=== PATIENT | male | born 2000 | race Caucasian/White ===

== ENCOUNTER → 2020-06-21 14:39 | Outpatient (BNVA) | payer OTHER, SELFPAY | PROVIDERS: Visit Provider Nurse Practitioner Family | DX: Z20.828 Contact with and (suspected) exposure to other viral communicable diseases (principal); J06.9 Acute upper respiratory infection, unspecified | CPT/HCPCS: 87635 ==

== ENCOUNTER → 2020-06-25 16:01 | Outpatient (BNVA) | payer OTHER, SELFPAY | PROVIDERS: Visit Provider Nurse Practitioner Family | DX: Z20.828 Contact with and (suspected) exposure to other viral communicable diseases (principal) | CPT/HCPCS: 87635 ==

== ENCOUNTER 2021-03-12 07:20 | Emergency (ER) | payer BC, SELFPAY ==
--- NOTE | 2021-03-12 07:24 | CTR_ITS ---
PROCEDURE INFORMATION: Exam: CT Head Without Contrast Exam date and time: 03/12/2021 7:24 AM Age: 20 years old Clinical indication: Weakness, extremity; Left; Additional info: Stroke symptoms - possible stroke w/ left sided weakness, head weakness, and unable to verbally communicate TECHNIQUE: Imaging protocol: Computed tomography of the head without contrast. Radiation optimization: All CT scans at this facility use at least one of these dose optimization techniques: automated exposure control; mA and/or kV adjustment per patient size (includes targeted exams where dose is matched to clinical indication); or iterative reconstruction. Other technique: STROKE PROTOCOL was implemented. COMPARISON: CT head wo con* [id number] 01/20/2019 9:33 PM RADIATION DOSE METRICS: Total DLP (mGy-cm): 990.41 FINDINGS: Brain: Normal. No hemorrhage. Unremarkable white matter. No mass effect. Cerebral ventricles: No ventriculomegaly. Paranasal sinuses: Visualized sinuses are unremarkable. No fluid levels. Mastoid air cells: Visualized mastoid air cells are well aerated. Bones/joints: Unremarkable. No acute fracture. Soft tissues: Unremarkable. CT/CT head wo con* [id number] IMPRESSION: No acute intracranial abnormality. ASSESSMENT: ASPECTS ([place] Stroke Program Early CT Score) is 10. Radiation Dose CTDIVOL = (mGy): DLP = 990.41 (mGy-cm)
[2021-03-12 07:28] VITALS: BP 127/71; PULSE 53; RESP 22; TEMP 36.7; O2SAT 100; BMI 22.6
--- NOTE | 2021-03-12 07:36 | XR_ITS ---
WS: [id number] Exam: XR chest 1V portable [id number] Date/Time of Exam: 03/12/2021 7:38 AM Reason For Exam: dyspnea/cough Comparison 01/20/2019. The lungs are clear and fully inflated. Normal cardiomediastinal structures and bony elements. Levosc oliosis of the thoracic spine probably positional. No pleural effusions. Monitoring leads superimpose the chest. XR/XR chest 1V portable [id number] IMPRESSION: 1. No acute cardiopulmonary finding. No significant change.
--- NOTE | 2021-03-12 07:36 | ECG_ITS ---
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 Measurements Intervals [place] Rate: 61 P: -8 SD: 152 QRS: 75 QRSD: 99 T: 63 QT: 390 QTc: 395 Interpretive Statements SINUS RHYTHM ST ELEVATION, PROBABLY EARLY REPOLARIZATION [ST ELEVATION WITH NORMALLY INFLECTED T-WAVE] No previous ECG available for comparison Electronically Signed On 03-12-2021 22:18:17 CDT by Suhail Bustillo M.D. [id number] f
--- NOTE | 2021-03-12 07:42 | CT_ITS ---
WS: [id number] CT ANGIOGRAM CEREBRAL AND CAROTID ARTERIES HISTORY: LOC TECHNIQUE: CT angiogram is performed of the carotid and cerebral arteries. During arterial injection imaging is obtained from the skull vertex to the aortic arch in 1.25 mm imaging. Coronal and sagittal reformats are submitted. Additional multi planar reformats of the carotid and cerebral arteries are submitted, MIP imaging also reviewed. NASCET criteria utilized. All CT scans at [facility] us e at least one of these dose optimization techniques: automated exposure control; mA and/or kV adjust ment per patient size (includes targeted exams where dose is matched to clinical indication); or iter ative reconstruction. CONTRAST: Omnipaque 350; 95 mL IV. DLP: 2179.38 mGy.cm COMPARISON: CT head 03/12/2021 Carotid Angiogram: Right carotid: Common carotid artery: Arises normally from the innominate artery. No significant plaque or stenosis. Internal carotid artery: No plaque or stenosis. External carotid artery: Patent. Left carotid: Common carotid artery: Arises normally from the aorta. No significant plaque or stenosis. Internal carotid artery: No plaque or stenosis. External carotid artery: Patent. Right vertebral artery: Unremarkable. Left vertebral artery: Unremarkable. Arises normally from the subclavian artery. Subclavian arteries: No stenosis or significant abnormality. Upper thorax: Normal. Thyroid gland: Normal. Osseous structures: Unremarkable. CEREBRAL ANGIOGRAM: Intracranial vertebral arteries: Normal with no significant atherosclerosis. Codominant vertebral art eries. Basilar artery: No significant stenosis or occlusion. No aneurysm. Intracranial Internal carotid arteries: Demonstrates no significant stenosis or plaque. Middle cerebral arteries: Normal. Anterior cerebral arteries and ACOM: Normal. Posterior cerebral arteries and PCOM's: Normal. Dural venous sinuses are normally enhancing. Mastoid air cells: Normal. Paranasal sinuses: Normal. Calvarium: Normal. CT/CT angio headneck* [id number] IMPRESSION: 1. Normal carotid arteries. 2. Unremarkable [place].
[2021-03-12 07:43] VITALS: PULSE 61
--- NOTE | 2021-03-12 07:44 | W.ED.NEUROSD ---
HPI - Neuro Symptoms/Deficit General: Chief Complaint: Neuro Symptoms/Deficit Stated Complaint: Stroke-like Symptoms Time Seen by Provider: 03/12/21 07:35 History of Present Illness: HPI Narrative: 20-year-old male brought in by EMS from work. Evidently there was complaint of generalized weakness and then focal left-sided weakness that began while he was at work. On the scene EMS viewed the text on his phone that he had sent to his mother in the course of conversation that was well written out with very few if any misspelled words was coherent and logical. Patient is poorly responsive here he will respond to sternal rub has symmetrical facial movements. He is generally lethargic. He does not really give any specific history other than his mouth being dry and feeling weak. Reports left-sided weakness. On exam his left and his right side seem to be equally weak and is difficult to differentiate any specific localizing symptoms. He does not follow commands well due to his lethargy. Onset (ago): minute(s) Timing confirmed by: other Location: speech, left arm and left leg History of same: No Severity: moderate Quality: weak Relieving factors: none Exacerbating factors: none Context: sudden onset Associated symptoms: Reports malaise and weakness; Deny chest pain, cough, diaphoresis, fevers/chills, headache(s), anorexia, nausea, seizures, short of breath, syncope, tingling, vertigo or vomiting Treatments Prior to Arrival: none Review of Systems Const: Reports: malaise; Denies: diaphoresis Card: Denies: chest pain or syncope GI: Denies: nausea or vomiting Neuro: Denies: headache(s) or vertigo Physical Exam Const: COMMON NORMALS: no acute distress GENERAL APPEARANCE: cooperative and comfortable HENMT: COMMON NORMALS: normocephalic and atraumatic HEAD & SCALP: normocephalic and atraumatic Neck/C-Spine: COMMON NORMALS: no JVD Resp: COMMON NORMALS: normal respiratory effort, No retractions, No use of accessory muscles and clear to auscultation bilaterally AUSCULTATION: clear to auscultation bilaterally Cardio: COMMON NORMALS: no JVD, regular rate, regular rhythm and No murmurs present (Cardio) RATE: regular rate RHYTHM: regular rhythm GI: COMMON NORMALS: Soft to palpation and No hepatosplenomegaly present AUSCULTATION: Yes normoactive bowel sounds PALPATION: Yes Soft to palpation, No Tenderness to palpation present (GI), No Guarding due to palpation present (GI) and Yes No hepatosplenomegaly present Extremity: COMMON NORMALS: normal to inspection, capillary refill normal, no clubbing, cyanosis or edema, no calf tenderness and no pedal edema Skin: COMMON NORMALS: no rashes or lesions noted GENERAL SKIN EXAM: no rashes or lesions noted Course Vital Signs: Vital signs: Vital Signs Temperature 98.0 F 03/12/21 07:28 Pulse Rate 57 L 03/12/21 11:42 Respiratory Rate 18 03/12/21 11:42 Blood Pressure 115/71 03/12/21 11:42 Pulse Oximetry 98 03/12/21 11:42 MDM - Neuro Symptoms/Deficit MDM Narrative: Medical decision making narrative: Patient symptoms mostly resolved resolved. He is now awake and alert and conversant. Think he may have had a partial complex seizure was symptoms limited to the left side he was postictal for the most part when he first arrived and now with time it has resolved. Labs and imaging EKG reviewed as on the chart. Working to go ahead and discharge the patient home set him up for outpatient sleep deprived EEG and neurology consult. Lab Data: Labs: Lab Results 03/12/21 03/12/21 03/12/21 07:25 07:25 07:25 WBC 6.9 10^3/uL 10^3/ uL (4.0-10.0) RBC 5.13 10^6/uL 10^6 /uL (4.1-5.3) Hgb 15.1 g/dL g/dL (11.7-16.6) Hct 44.9 % % (42.0-52.0) MCV 87.5 fl fl (80-94) MCH 29.4 pg pg (28.0-34.0) MCHC 33.6 g/dL g/dL (30.0-36.0) RDW 12.7 % % (12.1-15.1) Plt Count 243 10^3/cmm 10^3 /cmm (130-400) MPV 11.7 fL H fL (7.4-10.4) Neut % (Auto) 54.9 % % Lymph % (Auto) 31.4 % % Fleming % (Auto) 9.1 % % Eos % (Auto) 3.6 % % Baso % (Auto) 0.6 % % Neut # (Auto) 3.76 10^3/uL 10^3 /uL (1.8-7.7) Lymph # (Auto) 2.2 10^3/uL 10^3/ uL (0.8-4.8) Fleming # (Auto) 0.6 10^3/uL 10^3/ uL (0.2-0.9) Eos # (Auto) 0.3 10^3/uL 10^3/ uL (0.0-0.8) Baso # (Auto) 0.0 10^3/uL 10^3/ uL (0.0-0.1) Nucleated RBC % (a uto) 0 % % Nucleated RBCs # 0.0 /100WBC /100W BC PT 13.80 SECONDS SEC ONDS (12.1-14.9) INR 1.03 (0.8-1.2) APTT 28.8 SECONDS SECO NDS (23.9-36.7) Sodium 139 mmol/L mmol/L (136-145) Potassium 3.6 mmol/L mmol/L (3.5-5.1) Chloride 104 mmol/L mmol/L (98-107) Carbon Dioxide 23 mmol/L mmol/L (22-29) Anion Gap 15.6 (5-19) BUN 7 mg/dL mg/dL (6-20) Creatinine 0.7 mg/dL mg/dL (0.7-1.2) GFR Calculation 141.0 mL/min H mL /min (90-130) Glucose 104 mg/dL mg/dL (65-115) POC Glucose Calculated Osmolal ity 286 mOsm/kg mOsm/ kg (285-295) Lactate Calcium 9.5 mg/dL mg/dL (8.5-10.5) Total Bilirubin 0.3 mg/dL mg/dL (0.15-1.2) AST 16 U/L U/L (0-40) ALT 13 U/L U/L (0-41) Alkaline Phosphata se 55 IU/L IU/L (40-130) Ammonia Creatine Kinase 114 U/L U/L (39-308) Total Protein 7.0 g/dL g/dL (6.6-8.7) Albumin 4.4 g/dL g/dL (3.5-5.2) Globulin 2.6 g/dL g/dL (1.3-4.6) 03/12/21 03/12/21 03/12/21 07:49 08:59 08:59 WBC RBC Hgb Hct MCV MCH MCHC RDW Plt Count MPV Neut % (Auto) Lymph % (Auto) Fleming % (Auto) Eos % (Auto) Baso % (Auto) Neut # (Auto) Lymph # (Auto) Fleming # (Auto) Eos # (Auto) Baso # (Auto) Nucleated RBC % (a uto) Nucleated RBCs # PT INR APTT Sodium Potassium Chloride Carbon Dioxide Anion Gap BUN Creatinine GFR Calculation Glucose POC Glucose 102 mg/dL mg/dL (70-110) Calculated Osmolal ity Lactate 1.4 mmol/L mmol/L (0.5-2.2) Calcium Total Bilirubin AST ALT Alkaline Phosphata se Ammonia 41 umol/L umol/L (16-60) Creatine Kinase Total Protein Albumin Globulin Discharge Plan Discharge Patient Disposition: Home Clinical Impression: Seizure Condition: Stable Prescriptions: No Action No Known Home Medications RF: 0 Discharge Orders: Discharge ED (Routine); Ordered 03/12/21 Ordered By: Prosper Kelsey Discharge Diet: Usual diet Discharge Activity: Increase activity as tolerated Patient Instructions: Opioid Safety Activity Restrictions/Additional Instructions: Case management made arrangements for outpatient sleep deprived EEG and follow-up with neurology. Coding Level of Care Code ED Sales And Marketing Engineer for Eddie Fwgabriela Exam Comprehensive
[2021-03-12 07:45] LABS: Basophils % 0.6 %; Eosinophils # 0.3 10^3/uL (0.0-0.8); Eosinophils % 3.6 %; Hematocrit 44.9 % (42.0-52.0); Hemoglobin 15.1 g/dL (11.7-16.6); Lymphocytes # 2.2 10^3/uL (0.8-4.8); Lymphocytes % 31.4 %; Mean Corpuscular HGB Conc 33.6 g/dL (30.0-36.0); Mean Corpuscular Hemoglobin 29.4 pg (28.0-34.0); Mean Corpuscular Volume 87.5 fl (80-94); Mean Platelet Volume 11.7 fL (7.4-10.4); Monocytes # 0.6 10^3/uL (0.2-0.9); Monocytes % 9.1 %; Neutrophils # 3.76 10^3/uL (1.8-7.7); Neutrophils % 54.9 %; Nucleated Red Blood Cells % 0 %; Platelet Count 243 10^3/cmm (130-400); Red Blood Count 5.13 10^6/uL (4.1-5.3); Red Cell Distribution Width 12.7 % (12.1-15.1); White Blood Count 6.9 10^3/uL (4.0-10.0)
[2021-03-12 07:52] LABS: Glucose Point of Care 102 mg/dL (70-110)
[2021-03-12 07:56] LABS: Alanine Aminotransferase 13 U/L (0-41); Albumin Level 4.4 g/dL (3.5-5.2); Alkaline Phosphatase 55 IU/L (40-130); Anion Gap 15.6 (5-19); Aspartate Amino Transferase 16 U/L (0-40); Blood Urea Nitrogen 7 mg/dL (6-20); Calcium 9.5 mg/dL (8.5-10.5); Carbon Dioxide 23 mmol/L (22-29); Chloride 104 mmol/L (98-107); Creatine Phosphokinase 114 U/L (39-308); Creatinine Clr Calc Pharmacy 149.0949; Globulin 2.6 g/dL (1.3-4.6); Glucose 104 mg/dL (65-115); INR 1.03 (0.8-1.2); Osmolality Calculated 286 mOsm/kg (285-295); Partial Thromboplastin Time 28.8 SECONDS (23.9-36.7); Potassium 3.6 mmol/L (3.5-5.1); Sodium 139 mmol/L (136-145); Total Bilirubin 0.3 mg/dL (0.15-1.2)
[2021-03-12] MEDS: iohexol 350 mg/mL 100 mL Btl IV (08:19)
[2021-03-12 09:44] LABS: Ammonia 41 umol/L (16-60)
[2021-03-12 09:45] LABS: Lactate (Lactic Acid level) 1.4 mmol/L (0.5-2.2)
[2021-03-12 10:44] VITALS: BP 115/71; PULSE 57; RESP 18; O2SAT 98
[2021-03-12 11:42] VITALS: BP 115/71; PULSE 57; RESP 18; O2SAT 98
--- NOTE | 2021-03-12 15:34 | DCPLANNER ---
Addendum entered by Yaneth Contreras 03/15/21 11:13: Patients mother called and requested that classification case manager re fax patients paperwork again, and gave classification case manager a different number to fax to. She also asked if classification case manager could send the information to Dr. Noble office as well. door manager refaxed information and sent it to Dr. Noble office. Original Note: door manager had message to schedule a follow up appointment for an out patient sleep deprived EEG and a follow up appointment with neurology. Patients mother called classification case manager wanting the referral to be sent to Dr. Trejo at [facility], who currently sees patient. door manager faxed patients information and the order to the office of Dr. Trejo, who will call patient with appointment information.
== END 2021-03-12 11:42 | disposition home or self-care (01) ==
PROVIDERS: Emergency Provider Family Medicine
DX: R56.9 Unspecified convulsions (principal)
CPT/HCPCS: 36416; 70450; 70496; 70498; 71045; 80053; 82140; 82550; 82962; 83605; 85025; 85610; 85730; 93005; 99284; Q9967

== ENCOUNTER 2021-04-05 10:57 | Outpatient (CLI) | payer BC, SELFPAY ==
--- NOTE | 2021-04-05 11:45 | MR_ITS ---
WS: [id number] MRI HEAD WITH CONTRAST TECHNIQUE: Sagittal T1, T2 axial, T2 axial FLAIR, axial susceptibility weighted imaging, axial diffus ion weighted images, and coronal T2 images were obtained. Pre and post-T1 axial and post T1 coronal i mages. ADC and FSPGR images. CLINICAL INFORMATION: seizure and persistant left sided weakness COMPARISON: CT and CTA March 12, 2021 FINDINGS: No evidence of restricted diffusion to suggest acute ischemia. Ventricular system and basal cisterns are patent. Normal lou-white differentiation. No suspicious intracranial signal abnormalities. Macarena l posterior fossa. Normal vascular flow voids at the skull base. No extra-axial fluid collections. No evidence of mass or mass effect. Paranasal sinuses and mastoid air cells well aerated. No hemosiderin on susceptibly weighted images. Normal optic chiasm and pituitary infundibulum. Temporal lobes and hippocampal formations are normal in appearance. No evidence of mesial temporal sclerosis. No signal abnormalities in the mesial tempor al lobes. Normal cavernous sinuses and Meckel's cave. No abnormal gadolinium enhancement. Normal dural venous sinuses. MR/MR head wo/w con [id number] IMPRESSION: 1. No evidence of restricted diffusion to suggest acute ischemia. 2. Temporal lobes and hippocampal formations are normal in appearance. No evid ence of mesial temporal sclerosis. No signal abnormalities in the mesial tempor al lobes. 3. No abnormal gadolinium enhancement. 4. No suspicious intracranial signal abnormalities. 5. No hemosiderin on susceptibly weighted images.
[2021-04-05] MEDS: gadobenate dimeglumine 20 mL vial IV (13:02)
== END 2021-04-05 10:58 | disposition home or self-care (01) ==
LOC: RADSHAW 10:59
PROVIDERS: PCP Family Medicine Adult Medicine; Visit Provider Family Medicine Adult Medicine
DX: R56.9 Unspecified convulsions (principal); R53.1 Weakness
CPT/HCPCS: 70553; A9577

== ENCOUNTER 2021-06-11 04:03 | Emergency (ER) | payer BC, SELFPAY ==
[2021-06-11 04:06] VITALS: PULSE 69; RESP 21; TEMP 36.9; O2SAT 99; BMI 21.7
[2021-06-11 04:16] LABS: Glucose Point of Care 96 mg/dL (70-110)
--- NOTE | 2021-06-11 04:26 | CTR_ITS ---
PROCEDURE INFORMATION: Exam: CT Head Without Contrast Exam date and time: 06/11/2021 4:26 AM Age: 21 years old Clinical indication: Other: Seizure; Additional info: Sz TECHNIQUE: Imaging protocol: Computed tomography of the head without contrast. Radiation optimization: All CT scans at this facility use at least one of these dose optimization techniques: automated exposure control; mA and/or kV adjustment per patient size (includes targeted exams where dose is matched to clinical indication); or iterative reconstruction. COMPARISON: MR head wo/w con [id number] 04/05/2021 11:31 AM RADIATION DOSE METRICS: Total DLP (mGy-cm): 911.79 FINDINGS: Brain: Normal. No hemorrhage. Unremarkable white matter. No mass effect. Cerebral ventricles: No ventriculomegaly. Paranasal sinuses: Mucosal thickening in the ethmoid sinuses. Mastoid air cells: Visualized mastoid air cells are well aerated. Bones/joints: Unremarkable. No acute fracture. Soft tissues: Unremarkable. CT/CT head wo con* [id number] IMPRESSION: No acute intracranial abnormality.
[2021-06-11 04:37] LABS: Basophils % 0.5 %; Eosinophils # 0.2 10^3/uL (0.0-0.8); Eosinophils % 2.5 %; Hematocrit 39.7 % (42.0-52.0); Hemoglobin 13.4 g/dL (11.7-16.6); Lymphocytes # 2.4 10^3/uL (0.8-4.8); Lymphocytes % 32.1 %; Mean Corpuscular HGB Conc 33.8 g/dL (30.0-36.0); Mean Corpuscular Hemoglobin 29.5 pg (28.0-34.0); Mean Corpuscular Volume 87.3 fl (80-94); Mean Platelet Volume 11.5 fL (7.4-10.4); Monocytes # 0.7 10^3/uL (0.2-0.9); Monocytes % 9.8 %; Neutrophils # 4.15 10^3/uL (1.8-7.7); Neutrophils % 54.8 %; Nucleated Red Blood Cells % 0 %; Platelet Count 222 10^3/cmm (130-400); Red Blood Count 4.55 10^6/uL (4.1-5.3); Red Cell Distribution Width 12.5 % (12.1-15.1); White Blood Count 7.6 10^3/uL (4.0-10.0)
[2021-06-11 04:47] LABS: Alanine Aminotransferase 10 U/L (0-41); Albumin Level 3.7 g/dL (3.5-5.2); Alkaline Phosphatase 56 IU/L (40-130); Anion Gap 15.6 (5-19); Aspartate Amino Transferase 13 U/L (0-40); Blood Urea Nitrogen 8 mg/dL (6-20); Calcium 7.6 mg/dL (8.5-10.5); Carbon Dioxide 22 mmol/L (22-29); Chloride 108 mmol/L (98-107); Creatine Phosphokinase 73 U/L (39-308); Globulin 2.4 g/dL (1.3-4.6); Glucose 88 mg/dL (65-115); Magnesium 1.8 mg/dL (1.7-2.3); Osmolality Calculated 292 mOsm/kg (285-295); Phosphorus 2.9 mg/dL (2.5-4.5); Potassium 3.6 mmol/L (3.5-5.1); Sodium 142 mmol/L (136-145); Total Bilirubin 0.2 mg/dL (0.15-1.2); Total Protein 6.1 g/dL (6.6-8.7)
[2021-06-11 05:00] LABS: Alcohol Level < 10 mg/dL (0-10)
[2021-06-11 05:55] LABS: Prolactin 15.63 ng/mL (4.0-15.2)
[2021-06-11 06:10] VITALS: BP 110/64; PULSE 63; RESP 14; O2SAT 96
--- NOTE | 2021-06-12 23:48 | W.ED.SEIZURE ---
HPI - Seizure General: Chief Complaint: Seizure Stated Complaint: SEIZURE Time Seen by Provider: 06/11/21 04:22 History of Present Illness: HPI Narrative: 21yo male with hx of sz do presenting after repetitive seizures at home. He has had a semi recent change in sz medication, from keppra to carbamazapine. Mother states he kept going back in to a sz after brief periods of resolution. This required mother to call EMS and their administration of ativan. No seizures since. MD complaint: seizure Onset (ago): minute(s) Description of Episode: loss of consciousness and tonic-clonic movement (on left) Trauma: No Seizure History: Yes Place: Home Possible Precipitating Event: none Associated symptoms: Reports confusion (afterward); Deny chest pain, cough, fever(s), short of breath or weakness Treatments prior to arrival: benzodiazepines (by ems) Review of Systems Const: Denies: fever(s) Eyes: Denies: change in vision Card: Denies: chest pain Resp: Denies: dyspnea, productive cough or non-productive cough GI: Reports: nausea; Denies: abdominal pain or vomiting Neuro: Reports: confusion (afterward) PFSH ED PFSH: Medical History Acute left-sided weakness Resolved after the first 1-2 weeks from his first seizure. Anxiety and depression Depression due to physical illness Psychiatric care Seizure disorder Surgical History History of appendectomy Family History Father Epilepsy Other CAD (coronary artery disease) Cancer Diabetes Hyperlipidemia Hypertension Lung disease Stroke Social History Alcohol intake: current Alcohol intake frequency: holidays/special occasions only Alcohol type: beer Household members: family Marital status: Single Number of children: 1 Current occupational status: employed Physical Exam Const: COMMON NORMALS: no acute distress and patient oriented x3 GENERAL APPEARANCE: cooperative, well kempt and ill appearing HENMT: COMMON NORMALS: normocephalic and atraumatic HEAD & SCALP: normocephalic and atraumatic Eye: COMMON NORMALS: Equal, round and reactive pupils present and EOMs intact bilaterally PUPIL: Yes Equal, round and reactive pupils present Chest: COMMONS NORMALS: normal inspection of the chest Resp: COMMON NORMALS: normal respiratory effort, No use of accessory muscles and clear to auscultation bilaterally AUSCULTATION: clear to auscultation bilaterally Cardio: COMMON NORMALS: regular rate and regular rhythm RATE: regular rate RHYTHM: regular rhythm GI: COMMON NORMALS: Normal to inspection, nondistended, normoactive bowel sounds present Neuro: SOPHY COMA SCALE: document GCS findings [place] coma scale eye opening: Spontaneous [place] coma scale verbal response: Orientated [place] coma scale motor response: Obey commands [place] coma scale total score: 15 COMMON NORMALS: patient oriented x3 SPEECH: speech normal MOTOR EXAM: Normal motor muscle tone present throughout Psych: APPEARANCE: Yes well kempt Course Vital Signs: Vital signs: Vital Signs Temperature 98.5 F 06/11/21 04:06 Pulse Rate 63 06/11/21 06:10 Respiratory Rate 14 06/11/21 06:10 Blood Pressure 110/64 06/11/21 06:10 Pulse Oximetry 96 06/11/21 06:10 MDM - Seizure MDM Narrative: Medical decision making narrative: recovered from seizure. He has a hx of left sided partial complex sz involving tonic clonic movements. he was post ictal, and now recovering. ct normal. labs normal. he will be released. mother had asked about abortive therapy for sz in these types of events. prescribed rectal diastat for this. close neuro outpt follow up. Lab Data: Labs: Lab Results 06/11/21 06/11/21 06/11/21 04:12 04:18 04:18 WBC 7.6 10^3/uL 10^3/ uL (4.0-10.0) RBC 4.55 10^6/uL 10^6 /uL (4.1-5.3) Hgb 13.4 g/dL g/dL (11.7-16.6) Hct 39.7 % L % (42.0-52.0) MCV 87.3 fl fl (80-94) MCH 29.5 pg pg (28.0-34.0) MCHC 33.8 g/dL g/dL (30.0-36.0) RDW 12.5 % % (12.1-15.1) Plt Count 222 10^3/cmm 10^3 /cmm (130-400) MPV 11.5 fL H fL (7.4-10.4) Neut % (Auto) 54.8 % % Lymph % (Auto) 32.1 % % [place] % (Auto) 9.8 % % Eos % (Auto) 2.5 % % Baso % (Auto) 0.5 % % Neut # (Auto) 4.15 10^3/uL 10^3 /uL (1.8-7.7) Lymph # (Auto) 2.4 10^3/uL 10^3/ uL (0.8-4.8) [place] # (Auto) 0.7 10^3/uL 10^3/ uL (0.2-0.9) Eos # (Auto) 0.2 10^3/uL 10^3/ uL (0.0-0.8) Baso # (Auto) 0.0 10^3/uL 10^3/ uL (0.0-0.1) Nucleated RBC % (a uto) 0 % % Nucleated RBCs # 0.0 /100WBC /100W BC Sodium 142 mmol/L mmol/L (136-145) Potassium 3.6 mmol/L mmol/L (3.5-5.1) Chloride 108 mmol/L H mmol /L (98-107) Carbon Dioxide 22 mmol/L mmol/L (22-29) Anion Gap 15.6 (5-19) BUN 8 mg/dL mg/dL (6-20) Creatinine 0.6 mg/dL L mg/dL (0.7-1.2) GFR Calculation 167.0 mL/min H mL /min (90-130) Glucose 88 mg/dL mg/dL (65-115) POC Glucose 96 mg/dL mg/dL (70-110) Calculated Osmolal ity 292 mOsm/kg mOsm/ kg (285-295) Calcium 7.6 mg/dL L mg/dL (8.5-10.5) Phosphorus 2.9 mg/dL mg/dL (2.5-4.5) Magnesium 1.8 mg/dL mg/dL (1.7-2.3) Total Bilirubin 0.2 mg/dL mg/dL (0.15-1.2) AST 13 U/L U/L (0-40) ALT 10 U/L U/L (0-41) Alkaline Phosphata se 56 IU/L IU/L (40-130) Creatine Kinase 73 U/L U/L (39-308) Total Protein 6.1 g/dL L g/dL (6.6-8.7) Albumin 3.7 g/dL g/dL (3.5-5.2) Globulin 2.4 g/dL g/dL (1.3-4.6) Prolactin 15.63 ng/mL H ng/ mL (4.0-15.2) Ethyl Alcohol < 10 mg/dL mg/dL (0-10) Discharge Plan Discharge Patient Disposition: Home Clinical Impression: Seizure disorder Condition: Stable Prescriptions: New Diastat 2.5 mg kit 10 mg IN Q12H PRN (Reason: seizure activity) Qty: 1 RF: 0 No Action sertraline 50 mg tablet 50 mg PO DAILY Qty: 30 RF: 1 Discharge Orders: Discharge ED (Routine); Ordered 06/11/21 Ordered By: Romeo Baptiste Referrals: Jhonatan Ellis MD [Primary Care Provider] - 1-3 days Discharge Diet: Advance as tolerated Discharge Activity: Increase activity as tolerated Patient Instructions: Recurrent Seizures in Adults (ED) Activity Restrictions/Additional Instructions: Return for worsening seizures, mental status changes, weakness, other concerning symptoms. For seizure that does not break on its own, you may consider using rectal Diastat as prescribed. If this is used, you must present for evaluation to the nearest emergency room. Call your neurologist later today, and let them know you were seen here with a seizure they may wish to make medication changes, etc. Coding Level of Care Code ED Linotype Operator for Eddie Rosales
== END 2021-06-11 06:12 | disposition home or self-care (01) ==
PROVIDERS: Emergency Provider Emergency Medicine; PCP Family Medicine Adult Medicine
DX: G40.909 Epilepsy, unspecified, not intractable, without status epilepticus (principal)
CPT/HCPCS: 36416; 70450; 80053; 80307; 82550; 82962; 83735; 84100; 84146; 85025; 99283

== ENCOUNTER 2022-10-17 21:31 | Emergency (ER) | payer OTHER, MEDICAID, SELFPAY ==
[2022-10-17 21:36] VITALS: BP 128/80; PULSE 79; RESP 17; TEMP 36.9; O2SAT 99; BMI 24.4
--- NOTE | 2022-10-17 21:56 | CTR_ITS ---
PROCEDURE INFORMATION: Exam: CT Abdomen And Pelvis Without Contrast Exam date and time: 10/17/2022 10:04 PM Age: 22 years old Clinical indication: Abdominal pain; Prior surgery; Surgery type: Appy; Patient HX: C/O of lower abd and bilateral flank pain. TECHNIQUE: Imaging protocol: Computed tomography of the abdomen and pelvis without contrast. Radiation optimization: All CT scans at this facility use at least one of these dose optimization techniques: automated exposure control; mA and/or kV adjustment per patient size (includes targeted exams where dose is matched to clinical indication); or iterative reconstruction. REPORTING DATA: Count of CT and Cardiac NM exams in prior 12 months: This patient has received 0 known CTs and 0 known cardiac nuclear medicine studies in the 12 months prior to the current study. COMPARISON: CR XR chest 1V portable [id number] 03/12/2021 7:44 AM RADIATION DOSE METRICS: Total DLP (mGy-cm): 440.93 FINDINGS: Liver: Normal. No mass. Gallbladder and bile ducts: Partially contracted gallbladder. The bile ducts are normal. Pancreas: Normal. No ductal dilation. Spleen: Normal. No splenomegaly. Adrenal glands: Normal. No mass. Kidneys and ureters: Normal. No hydronephrosis. Stomach and bowel: Unremarkable. No obstruction. No mucosal thickening. Appendix: The appendix is not visualized. No secondary signs of appendicitis. Intraperitoneal space: Unremarkable. No free air. No significant fluid collection. Vasculature: Unremarkable. No abdominal aortic aneurysm. Lymph nodes: Unremarkable. No enlarged lymph nodes. Urinary bladder: Unremarkable as visualized. Reproductive: Unremarkable as visualized. Bones/joints: Unremarkable. No acute fracture. Soft tissues: Unremarkable. CT/CT kidney stone [id number] IMPRESSION: No acute findings.
[2022-10-17 21:57] LABS: Basophils % 0.5 %; Eosinophils # 0.2 10^3/uL (0.0-0.8); Eosinophils % 2.2 %; Hemoglobin 14.5 g/dL (11.7-16.6); Lymphocytes # 1.5 10^3/uL (0.8-4.8); Lymphocytes % 17.7 %; Mean Corpuscular HGB Conc 33.7 g/dL (30.0-36.0); Mean Corpuscular Hemoglobin 30.2 pg (28.0-34.0); Mean Corpuscular Volume 89.6 fl (80-94); Mean Platelet Volume 11.2 fL (7.4-10.4); Monocytes # 0.9 10^3/uL (0.2-0.9); Neutrophils # 5.98 10^3/uL (1.8-7.7); Neutrophils % 69.3 %; Nucleated Red Blood Cells % 0 %; Platelet Count 241 10^3/cmm (130-400); White Blood Count 8.6 10^3/uL (4.0-10.0)
--- NOTE | 2022-10-17 21:57 | ED_ITS ---
HPI - Abdominal Pain General: Chief Complaint: Abdominal Pain Stated Complaint: ABD Pain Time Seen by Provider: 10/17/22 21:43 Source: patient Mode of arrival: ambulatory Limitations: no limitations History of Present Illness: 22-year-old male states been having some lower abdominal and flank pain thro ughout the day got much worse over the last 3 hours states he is also had some pain with urination he states he feels like he may have a kidney stone he has no history of kidney stones denies any penile discharge denies any fever denies any vomiting or diarrhea rates pain 8 out of 10 currently. Associated Symptoms: Denies chills, diarrhea, dysuria, fever(s), nausea and vomiting Review of Systems Const: Denies: fever(s), chills, body aches or change in appetite Eyes: Denies: eye discomfort ENMT: Denies: throat pain or dental pain Card: Denies: chest pain Resp: Denies: dyspnea GI: Reports: abdominal pain; Denies: nausea, vomiting or diarrhea : Reports: difficulty urinating; Denies: dysuria Musc: Reports: back pain; Denies: neck pain Skin/Breast: Denies: rash Neuro: Denies: headache(s) PFSH ED PFSH: Medical History Acute left-sided weakness Resolved after the first 1-2 weeks from his first seizure. Anxiety and depression Depression due to physical illness Myalgia and myositis Seizure disorder Surgical History History of appendectomy Family History Father Epilepsy Other CAD (coronary artery disease) Cancer Diabetes Hyperlipidemia Hypertension Lung disease Stroke Social History Smoking and tobacco status: never smoked Alcohol intake: current Alcohol intake frequency: holidays/special occasions only Alcohol type: beer Substance/Drug Use: never Household members: family Marital status: Single Number of children: 1 Current occupational status: employed Physical Exam Const: COMMON NORMALS: no acute distress, patient oriented x3 and healthy appearing HENMT: COMMON NORMALS: normocephalic and atraumatic HEAD & SCALP: normocephalic and atraumatic Eye: COMMON NORMALS: conjunctivae normal CONJUNCTIVA: Yes conjunctivae normal Neck/C-Spine: COMMON NORMALS: full ROM and supple Chest: COMMONS NORMALS: normal inspection of the chest and normal palpation of entire chest wall Resp: COMMON NORMALS: normal respiratory effort, No retractions, No use of accessory muscles and clear to auscultation bilaterally AUSCULTATION: clear to auscultation bilaterally Cardio: COMMON NORMALS: regular rate, regular rhythm and No murmurs present (Cardio) RATE: regular rate RHYTHM: regular rhythm GI: COMMON NORMALS: Normal to inspection, nondistended, normoactive bowel triston nds present, Soft to palpation, non-tender and no masses PALPATION: Yes Soft to palpation Extremity: COMMON NORMALS: normal to inspection and full ROM Neuro: COMMON NORMALS: patient oriented x3, moves all extremities and no focal motor deficits Psych: COMMON NORMALS: mental status grossly normal, Normal thought process present and cooperative THOUGHT PROCESS: Normal thought process present Skin: COMMON NORMALS: no rashes or lesions noted and no wounds GENERAL SKIN EXAM: no rashes or lesions noted Course Vital Signs: Vital signs: Vital Signs Temperature 98.5 F 10/17/22 21:36 Pulse Rate 69 10/17/22 22:33 Respiratory Rate 16 10/17/22 22:33 Blood Pressure 123/75 10/17/22 22:33 Pulse Oximetry 99 10/17/22 22:33 Oxygen Delivery Me thod Room Air 10/17/22 22:33 MDM - Abdominal Pain Medical Decision Making Patient presents with back and abdominal pain he has been well-appearing here he is now pain-free his CT scan blood work urinalysis all normal he is stable for discharge we will prescribe him nausea medicine along with Naprosyn he is to follow-up with PCP and return if worsening. Lab Data 10/17/22 21:50 10/17/22 21:50 Labs/Radiology: Radiology Impressions Abdomen/Pelvis CT 10/17/22 21:56 IMPRESSION: No acute findings. Laboratory Results WBC 8.6 10^3/uL (4.0-10.0) 10/17/22 21:50 RBC 4.80 10^6/uL (4.1-5.3) 10/17/22 21:50 Hgb 14.5 g/dL (11.7-16.6) 10/17/22 21:50 Hct 43.0 % (42.0-52.0) 10/17/22 21:50 MCV 89.6 fl (80-94) 10/17/22 21:50 MCH 30.2 pg (28.0-34.0) 10/17/22 21:50 MCHC 33.7 g/dL (30.0-36.0) 10/17/22 21:50 RDW 12.0 % (12.1-15.1) L 10/17/22 21:50 Plt Count 241 10^3/cmm (130-400) 10/17/22 21:50 MPV 11.2 fL (7.4-10.4) H 10/17/22 21:50 Neut % (Auto) 69.3 % 10/17/22 21:50 Lymph % (Auto) 17.7 % 10/17/22 21:50 [place] % (Auto) 10.0 % 10/17/22 21:50 Eos % (Auto) 2.2 % 10/17/22 21:50 Baso % (Auto) 0.5 % 10/17/22 21:50 Neut # (Auto) 5.98 10^3/uL (1.8-7.7) 10/17/22 21:50 Lymph # (Auto) 1.5 10^3/uL (0.8-4.8) 10/17/22 21:50 [place] # (Auto) 0.9 10^3/uL (0.2-0.9) 10/17/22 21:50 Eos # (Auto) 0.2 10^3/uL (0.0-0.8) 10/17/22 21:50 Baso # (Auto) 0.0 10^3/uL (0.0-0.1) 10/17/22 21:50 Nucleated RBC % (auto) 0 % 10/17/22 21:50 Nucleated RBCs # 0.0 /100WBC 10/17/22 21:50 Sodium 139 mmol/L (136-145) 10/17/22 21:50 Potassium 3.8 mmol/L (3.5-5.1) 10/17/22 21:50 Chloride 103 mmol/L (98-107) 10/17/22 21:50 Carbon Dioxide 25 mmol/L (22-29) 10/17/22 21:50 Anion Gap 14.8 (5-19) 10/17/22 21:50 BUN 7 mg/dL (6-20) 10/17/22 21:50 Creatinine 1.1 mg/dL (0.7-1.2) 10/17/22 21:50 GFR Calculation 82.2 mL/min (90-130) L 10/17/22 21:50 Glucose 101 mg/dL (65-115) 10/17/22 21:50 Calculated Osmolality 286 mOsm/kg (285-295) 10/17/22 21:50 Calcium 9.5 mg/dL (8.5-10.5) 10/17/22 21:50 Total Bilirubin 0.4 mg/dL (0.15-1.2) 10/17/22 21:50 AST 18 U/L (0-40) 10/17/22 21:50 ALT 16 U/L (0-41) 10/17/22 21:50 Alkaline Phosphatase 77 U/L (40-130) 10/17/22 21:50 Total Protein 7.4 g/dL (6.6-8.7) 10/17/22 21:50 Albumin 4.6 g/dL (3.5-5.2) 10/17/22 21:50 Globulin 2.8 g/dL (1.3-4.6) 10/17/22 21:50 Lipase 37 U/L (13-60) 10/17/22 21:50 Urine Color Yellow (Yellow) 10/17/22 22:46 Urine Appearance Clear (CLEAR) 10/17/22 22:46 Urine pH 6 (5-7) 10/17/22 22:46 Ur Specific [place] 1.015 (1.005-1.030) 10/17/22 22:46 Urine Protein Neg (Negative) 10/17/22 22:46 Urine Glucose (UA) Norm (Normal) 10/17/22 22:46 Urine Ketones Negative (Negative) 10/17/22 22:46 Urine Blood Neg (Negative) 10/17/22 22:46 Urine Nitrate Negative (Negative) 10/17/22 22:46 Urine Bilirubin Neg (Negative) 10/17/22 22:46 Urine Urobilinogen 1 mg/dL (Negative) H 10/17/22 22:46 Ur Leukocyte Esterase Negative (Negative) 10/17/22 22:46 Discharge Plan Discharge Patient Disposition: Home Clinical Impression: Abdominal pain Condition: Stable Prescriptions: New ondansetron 4 mg tablet,disintegrating 4 mg PO Q6H PRN (Reason: nausea and vomiting) Qty: 14 0RF Naprosyn 500 mg tablet 500 mg PO BID PRN (Reason: pain) Qty: 20 0RF No Action divalproex 500 mg tablet,delayed release (DR/EC) 1,000 mg PO BID Xcopri 100 mg tablet 100 mg PO DAILY Rx Instructions: administer weeks 7 and 8 of therapy lorazepam 1 mg tablet 1 mg PO TID PRN tramadol 50 mg tablet 50 mg PO Q8H PRN (Reason: muscle pain) Qty: 20 0RF Discharge Orders: Discharge ED (Routine); Ordered 10/17/22 Ordered By: Praveena Haas Referrals: Jhonatan Ellis MD [Primary Care Provider] - 1-3 days Discharge Diet: Advance as tolerated Discharge Activity: Resume usual activity Patient Instructions: Abdominal Pain (ED) Coding Level of Care Code ED Signals 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
[2022-10-17 22:12] LABS: Alanine Aminotransferase 16 U/L (0-41); Albumin Level 4.6 g/dL (3.5-5.2); Alkaline Phosphatase 77 U/L (40-130); Anion Gap 14.8 (5-19); Aspartate Amino Transferase 18 U/L (0-40); Blood Urea Nitrogen 7 mg/dL (6-20); Calcium 9.5 mg/dL (8.5-10.5); Carbon Dioxide 25 mmol/L (22-29); Chloride 103 mmol/L (98-107); Globulin 2.8 g/dL (1.3-4.6); Glomerular Filtration Rate 82.2 mL/min (90-130); Glucose 101 mg/dL (65-115); Lipase 37 U/L (13-60); Osmolality Calculated 286 mOsm/kg (285-295); Potassium 3.8 mmol/L (3.5-5.1); Sodium 139 mmol/L (136-145); Total Bilirubin 0.4 mg/dL (0.15-1.2); Total Protein 7.4 g/dL (6.6-8.7)
[2022-10-17] MEDS: sodium chloride 0.9% 1,000 ML 999 ML IV (22:29)
[2022-10-17 22:30] VITALS: RESP 16
[2022-10-17] MEDS: ondansetron 2 mg/ML SDV 2 mL 4 MG IVP (22:30)
[2022-10-17] MEDS: HYDROmorphone 1 mg/mL INJ 1 mL 0.5 MG IVP (22:30)
[2022-10-17 22:33] VITALS: BP 123/75; PULSE 69; RESP 16; O2SAT 99
[2022-10-17 22:53] LABS: Add Urine Microscopic? NO; Charge for UA Resulting for Rev
[2022-10-17 22:55] LABS: Bilirubin Urine Neg (Negative); Blood Urine Neg (Negative); Glucose Urine UA Norm (Normal); Ketones Urine Negative (Negative); Leukocyte Esterase Urine Negative (Negative); Nitrate Urine Negative (Negative); Protein Urine Neg (Negative); Specific Gravity, Urine 1.015 (1.005-1.030); Urine Appearance Clear (CLEAR); Urine Color Yellow (Yellow); Urobilinogen Urine 1 mg/dL (Negative); pH Urine 6 (5-7)
[2022-10-17 23:19] VITALS: BP 123/75; PULSE 69; RESP 16; TEMP 36.9; O2SAT 99
== END 2022-10-17 23:20 | disposition home or self-care (01) ==
PROVIDERS: Emergency Provider Emergency Medicine; PCP Family Medicine Adult Medicine
DX: R10.30 Lower abdominal pain, unspecified (principal)
CPT/HCPCS: 36415; 74176; 80053; 81003; 83690; 85025; 96361; 96374; 96375; 99285; J1170; J2405; J7030

== ENCOUNTER 2022-12-08 19:29 | Emergency (ER) | payer OTHER, MEDICAID, SELFPAY ==
--- NOTE | 2022-12-08 19:33 | XRR_ITS ---
PROCEDURE INFORMATION: Exam: XR Right Ankle Exam date and time: 12/08/2022 7:48 PM Age: 22 years old Clinical indication: Injury or trauma; Fall; Other: Pain; Additional info: R ankle inj TECHNIQUE: Imaging protocol: Radiologic exam of the right ankle. Views: 3 or more views. COMPARISON: No relevant prior studies available. FINDINGS: Bones/joints: No acute fracture. No dislocation. Normal bone mineralization. No joint effusion. Joint spaces are maintained. Ankle mortise is symmetric. Soft tissues: No soft tissue swelling. No radiopaque foreign body. XR/XR ankle RT min 3V* [id number] IMPRESSION: Negative radiographs of right ankle. Followup imaging recommended in 7-14 days if clinical concern for fracture persists.
[2022-12-08 19:40] VITALS: BP 111/76; PULSE 67; RESP 16; TEMP 36.6; O2SAT 99; BMI 24.8
--- NOTE | 2022-12-08 19:51 | W.ED.EXTPRO ---
HPI - Extremity Problem General: Chief complaint: Extremity Injury, Lower Stated complaint: Right ankel injury Time Seen by Provider: 12/08/22 19:51 History of Present Illness: 22-year-old gentleman presenting with right ankle and foot injury. He reports stepping in a hole and had an inversion injury of his foot. Immediately had a popping sound and pain. Has been able to ambulate though has pain associated with this. Notes some tingling throughout the entire distribution of the foot. No other specific changes in health, exacerbating, or alleviating factors identified. Onset (ago): hour(s) Location: right and lower extremity Severity scale (1-10): 7 Quality: stabbing and aching Exacerbating factors: range of motion, weight bearing, walking and palpation Review of Systems General: Reports: 10 or more systems reviewed and unremarkable except in HPI and below PFSH ED PFSH: Medical History Acute left-sided weakness Resolved after the first 1-2 weeks from his first seizure. Anxiety and depression Depression due to physical illness Myalgia and myositis Seizure disorder Surgical History History of appendectomy Family History Father Epilepsy Other CAD (coronary artery disease) Cancer Diabetes Hyperlipidemia Hypertension Lung disease Stroke Social History Smoking and tobacco status: never smoked Alcohol intake: current Alcohol intake frequency: holidays/special occasions only Alcohol type: beer Substance/Drug Use: never Household members: family Marital status: Single Number of children: 1 Current occupational status: employed Physical Exam Const: COMMON NORMALS: alert GENERAL APPEARANCE: cooperative and well developed HENMT: COMMON NORMALS: normocephalic and atraumatic HEAD & SCALP: normocephalic and atraumatic Eye: COMMON NORMALS: conjunctivae normal CONJUNCTIVA: Yes conjunctivae normal SCLERA: sclerae normal Neck/C-Spine: COMMON NORMALS: supple GENERAL: Yes trachea midline Resp: COMMON NORMALS: normal respiratory effort EFFORT & INSPECTION: Yes able to speak in complete sentences Cardio: COMMON NORMALS: regular rate and regular rhythm RATE: regular rate RHYTHM: regular rhythm Extremity: NARRATIVE EXTREMITY EXAM: Knee and proximal to distal lower leg without abnormality on exam. Lateral ankle ecchymosis and swelling to midfoot tenderness palpation laterally. CMS intact. GENERAL: Yes normal exam except as noted and No edema Neuro: COMMON NORMALS: moves all extremities SENSORIUM/ORIENTATION: Yes alert and No Orientation impaired Psych: COMMON NORMALS: mental status grossly normal and Normal thought process present THOUGHT PROCESS: Normal thought process present Course Vital Signs: Vital signs: Vital Signs Temperature 97.9 F 12/08/22 19:40 Pulse Rate 67 12/08/22 19:40 Respiratory Rate 16 12/08/22 20:07 Blood Pressure 111/76 12/08/22 19:40 Pulse Oximetry 99 12/08/22 19:40 Oxygen Delivery Me thod Room Air 12/08/22 19:40 MDM - Extremity (Nontraumatic) Medical Decision Making 22-year-old gentleman presenting with inversion injury. Exam as above. No evidence of vascular or neurologic compromise. No open wounds. X-rays are negative. Patient treated with analgesia and satisfactory for outpatient management. Medical Records I reviewed the patient's medical records. Lab Data I reviewed the patient's lab results. Radiology Impressions Ankle X-Ray 12/08/22 19:33 IMPRESSION: Negative radiographs of right ankle. Followup imaging recommended in 7-14 days if clinical concern for fracture persists. Foot X-Ray 12/08/22 19:56 IMPRESSION: Negative radiographs of the right foot. Followup imaging recommended in 7-14 days if clinical concern for fracture persists. Discharge Plan Discharge Patient Disposition: Home Clinical Impression: Sprain and strain of right ankle Condition: Stable Prescriptions: No Action (DME) Cam Boot to the right ankle See Rx Instructions .Route .MEDSUPPLY Qty: 1 0RF Rx Instructions: As directed (DME) ASO to right ankle See Rx Instructions .Route .MEDSUPPLY Qty: 1 0RF Rx Instructions: As directed divalproex 500 mg tablet,delayed release (DR/EC) 1,000 mg PO BID Xcopri 100 mg tablet 100 mg PO DAILY Rx Instructions: administer weeks 7 and 8 of therapy lorazepam 1 mg tablet 1 mg PO TID PRN tramadol 50 mg tablet 50 mg PO Q8H PRN (Reason: muscle pain) Qty: 20 0RF ondansetron 4 mg tablet,disintegrating 4 mg PO Q6H PRN (Reason: nausea and vomiting) Qty: 14 0RF Naprosyn 500 mg tablet 500 mg PO BID PRN (Reason: pain) Qty: 20 0RF Discharge Orders: Discharge ED (Routine); Ordered 12/08/22 Ordered By: Marcos Freeman Referrals: Jhonatan Ellis MD [Primary Care Provider] - Discharge Diet: Usual diet Discharge Activity: Increase activity as tolerated Patient Instructions: Ankle Sprain (ED), P.R.I.C.E. Treatment (ED), Opioid Safety Activity Restrictions/Additional Instructions: Thank you for visiting the emergency department. You were seen and evaluated for ankle injury. The most likely cause of your pain is related to injury to ligament and soft tissue. Treatment for this is supportive. If symptoms continue you may require follow-up with podiatry or orthopedics. You may use [id number] medications such as acetaminophen and ibuprofen for pain however please do not exceed the daily recommended dosage as listed on the packaging and please keep in mind that many namebrand medications contain the same active ingredients. Please avoid these medications if previously instructed to do so by another physician due to other underlying medical condition. Return for uncontrolled symptoms or anything else that you are concerned about and feel needs emergency department evaluation. Coding Level of Care Code ED Gravel Hauler for Eddie Rosales
--- NOTE | 2022-12-08 19:56 | XRR_ITS ---
PROCEDURE INFORMATION: Exam: XR Right Foot Exam date and time: 12/08/2022 8:09 PM Age: 22 years old Clinical indication: Injury or trauma; Fall; Other: Pain; Additional info: Fall, pain midfoot TECHNIQUE: Imaging protocol: Radiologic exam of the right foot. Views: 3 or more views. COMPARISON: No relevant prior studies available. FINDINGS: Bones/joints: No acute fracture. No dislocation. Normal bone mineralization. No joint effusion. Joint spaces are maintained. Soft tissues: No soft tissue swelling. No radiopaque foreign body. XR/XR foot RT min 3V* [id number] IMPRESSION: Negative radiographs of the right foot. Followup imaging recommended in 7-14 days if clinical concern for fracture persists.
[2022-12-08 20:07] VITALS: RESP 16
[2022-12-08] MEDS: oxyCODONE 5 mg IR Tab/Cap PO (20:07)
== END 2022-12-08 20:52 | disposition home or self-care (01) ==
PROVIDERS: Emergency Provider Emergency Medicine; PCP Family Medicine Adult Medicine
DX: S93.401A Sprain of unspecified ligament of right ankle, initial encounter (principal); S96.911A Strain of unspecified muscle and tendon at ankle and foot level, right foot, initial encounter; W18.42XA Slipping, tripping and stumbling without falling due to stepping into hole or opening, initial encounter
CPT/HCPCS: 73610; 73630; 99283; E0114

== ENCOUNTER 2023-01-10 14:54 | Outpatient (CLI) | payer OTHER, MEDICAID, SELFPAY ==
--- NOTE | 2023-01-10 15:00 | MRR_ITS ---
PROCEDURE INFORMATION: Exam: MR Right Lower Extremity Joint Without Contrast; Ankle Exam date and time: 01/10/2023 3:39 PM Age: 22 years old Clinical indication: Injury or trauma; Fall; Other: Pain for 3 weeks; Additional info: To elevate atfl TECHNIQUE: Imaging protocol: Magnetic resonance imaging of the right lower extremity without contrast. Exam focused on the ankle. COMPARISON: CR (LOW EXM, ) 12/08/2022 7:48 PM FINDINGS: Bones/joints: Small-sized ankle joint effusion. Tibiotalar alignment is anatomic. Normal cartilage signal. No fracture. LIGAMENTS: Distal tibiofibular syndesmosis: Unremarkable. No tear. Anterior talofibular ligament: The ATFL has a partial-thickness tear in its inferior fibers. Posterior talofibular ligament: Intact. Calcaneofibular ligament: There is also a tear of the calcaneofibular ligament. Deltoid ligament complex: Low-grade tearing of the superficial deltoid ligament. TENDONS: Flexor tendons of foot: Unremarkable as visualized. Tibialis posterior tendon: Unremarkable as visualized. Peroneal tendons: Unremarkable as visualized. Extensor tendons of foot: Unremarkable as visualized. Tibialis anterior tendon: Unremarkable as visualized. Achilles tendon: Unremarkable as visualized. Tarsal canal (Sinus tarsi): Unremarkable. Normal signal of the fat. Tarsal tunnel: Unremarkable. Soft tissues: There is minimal subcutaneous soft tissue edema in the lateral ankle overlying the ATFL tear. Plantar fascia: Plantar fascia is unremarkable. MR/MR ankle RT wo con* [id number] IMPRESSION: 1. Partial-thickness tearing of the anterior talofibular ligament with associated calcaneofibular ligamentous tear. Small ankle joint effusion. 2. Low-grade tearing of the superficial deltoid ligament.
== END 2023-01-10 14:55 | disposition home or self-care (01) ==
LOC: RAD 14:54
PROVIDERS: PCP Family Medicine Adult Medicine; Visit Provider Podiatrist Foot & Ankle Surgery
DX: S93.491A Sprain of other ligament of right ankle, initial encounter (principal); S93.419A Sprain of calcaneofibular ligament of unspecified ankle, initial encounter; S93.421A Sprain of deltoid ligament of right ankle, initial encounter; S96.911A Strain of unspecified muscle and tendon at ankle and foot level, right foot, initial encounter; W19.XXXA Unspecified fall, initial encounter; M25.471 Effusion, right ankle
CPT/HCPCS: 73721

== ENCOUNTER 2023-01-20 21:53 | Emergency (ER) | payer OTHER, MEDICAID, SELFPAY ==
[2023-01-20 21:54] VITALS: BP 119/73; PULSE 87; RESP 18; TEMP 36.7; O2SAT 98; BMI 23.0
--- NOTE | 2023-01-20 22:18 | W.ED.SEIZURE ---
HPI - Seizure General: Chief Complaint: Seizure Stated Complaint: seizure activity Time Seen by Provider: 01/20/23 21:54 History of Present Illness: HPI Narrative: 22-year-old male presents emerged department via EMS personnel discomforted by the patient's . The patient's states that he did take a marijuana gummy earlier today. She states that he has been evaluated for his seizures and they are nonepileptic in nature. Patient does not appear to be postictal at present. He does followed commands appropriately and is in no acute distress. Seizure History: Yes Review of Systems General: Reports: 10 or more systems reviewed and unremarkable except in HPI and below Neuro: Reports: seizure-like activity Psych: Reports: anxiety PFSH ED PFSH: Medical History Acute left-sided weakness Resolved after the first 1-2 weeks from his first seizure. Anxiety and depression Depression due to physical illness Myalgia and myositis Seizure disorder Surgical History History of appendectomy Family History Father Epilepsy Other CAD (coronary artery disease) Cancer Diabetes Hyperlipidemia Hypertension Lung disease Stroke Social History Smoking and tobacco status: never smoked Alcohol intake: current Alcohol intake frequency: holidays/special occasions only Alcohol type: beer Substance/Drug Use: never Household members: family Marital status: Single Number of children: 1 Current occupational status: employed Physical Exam Const: COMMON NORMALS: no acute distress, average body habitus, patient oriented x3, no limitations, healthy appearing, alert and well nourished HENMT: COMMON NORMALS: normocephalic, atraumatic, hearing grossly normal bilaterally, external ears normal, EAC's normal, TM's normal bilaterally, Normal external nose present, Normal nasal mucous membranes and turbinates present, moist oral mucous membranes, oropharynx normal, dentition normal and gingiva normal HEAD & SCALP: normocephalic and atraumatic FACE & SINUS: normal facial exam NOSE: Normal external nose present and Normal nasal mucous membranes and turbinates present EXTERNAL EAR: Yes external ears normal EXTERNAL AUDITORY CANAL: EAC's normal TYMPANIC MEMBRANE: TM's normal bilaterally Eye: COMMON NORMALS: Equal, round and reactive pupils present, EOMs intact bilaterally, conjunctivae normal, no scleral icterus, no papilledema, normal visual aranda by confrontation and fundi normal bilaterally GENERAL EYE: appearance normal, both eyes and all related structures CONJUNCTIVA: Yes conjunctivae normal PUPIL: Yes Equal, round and reactive pupils present DIRECT OPHTHALMOSCOPY: Yes no papilledema and Yes fundi normal bilaterally Neck/C-Spine: COMMON NORMALS: full ROM, no lymphadenopathy, supple, no meningeal signs, no JVD and Thyroid normal GENERAL: Yes normal visual inspection and Yes trachea midline THYROID: Thyroid normal CERVICAL SPINE: Yes cervical ROM normal Chest: COMMONS NORMALS: normal inspection of the chest, normal palpation of entire chest wall, normal inspection of the breasts and normal palpation of the breasts Breast/axilla inspection: Yes normal inspection of the breasts BREAST/AXILLA PALPATION: Yes normal palpation of the breasts Resp: COMMON NORMALS: normal respiratory effort, No retractions, No use of accessory muscles, clear to auscultation bilaterally and percussion normal AUSCULTATION: clear to auscultation bilaterally PERCUSSION: percussion normal Cardio: COMMON NORMALS: no JVD, regular rate, regular rhythm, S1 normal heart sound present, S2 normal heart sound present, No gallops present (Cardio), No clicks present (Cardio), No murmurs present (Cardio), No rub (Cardio) and Peripheral pulses 2+ throughout RATE: regular rate RHYTHM: regular rhythm HEART SOUNDS: S1 normal heart sound present and S2 normal heart sound present PERIPHERAL PULSES: Peripheral pulses 2+ throughout GI: COMMON NORMALS: Normal to inspection, nondistended, normoactive bowel sounds present, Soft to palpation, non-tender, No hepatosplenomegaly present, no masses and no bruits PALPATION: Yes Soft to palpation and Yes No hepatosplenomegaly present : COMMON NORMALS: Yes no CVA tenderness BLADDER/KIDNEY EXAM: Yes no CVA tenderness Back/Pelvis: COMMON NORMALS: no CVA tenderness, thoracic and lumbar spine normal to inspection, no thoracic nor lumbar tenderness and thoraco-lumbar ROM normal Extremity: COMMON NORMALS: normal to inspection, full ROM, capillary refill normal, no joint enlargement, no clubbing, cyanosis or edema, no calf tenderness and no pedal edema Neuro: SOPHY COMA SCALE: document GCS findings [place] coma scale eye opening: Spontaneous Sophy coma scale verbal response: Orientated Sophy coma scale motor response: Obey commands Sophy coma scale total score: 15 COMMON NORMALS: patient oriented x3 SENSORIUM/ORIENTATION: Yes alert MENINGEAL SIGNS: Yes no meningeal signs MOTOR EXAM: 5/5 motor strength present throughout Psych: COMMON NORMALS: mental status grossly normal, Normal thought process present, cooperative, normal affect, speech normal, activity/motor behavior normal, denies hallucinations, denies homicidal ideation and denies suicidal ideation SPEECH: Yes normal speech THOUGHT PROCESS: Normal thought process present Skin: COMMON NORMALS: no rashes or lesions noted, no wounds, turgor normal, no jaundice, no petechiae and no mottling GENERAL SKIN EXAM: no rashes or lesions noted and turgor normal Course Vital Signs: Vital signs: Vital Signs Temperature 98.1 F 01/20/23 21:54 Pulse Rate 88 01/20/23 22:37 Respiratory Rate 18 01/20/23 22:37 Blood Pressure 119/73 01/20/23 22:37 Pulse Oximetry 96 01/20/23 22:37 Oxygen Delivery Me thod Room Air, Nasal C annula 01/20/23 22:37 MDM - Seizure MDM Narrative Medical decision making narrative: Physical exam completed and documented, laboratory examination reviewed, I discussed with the patient and his family member that was in the room regarding the patient's nonepileptic neurogenic seizures. The patient's mother states that they are currently trying to get disability for the patient's nonepileptic neurogenic seizures. He states that he is ready to be discharged he is in no acute distress responds all questions appropriately. I advised the patient he may return to the emergency department at any time for any reason or if his symptoms worsen or return. Patient's vital signs and condition were stable at the time of discharge and the patient was provided discharge instructions and discharged home in stable condition in no acute distress. Medical Records Attestation: I reviewed the patient's medical records. Lab Data Attestation: I reviewed the patient's lab results. 01/20/23 21:15 01/20/23 21:15 Labs: Laboratory Results WBC 6.6 10^3/uL (4.0-10.0) 01/20/23 21:15 RBC 4.84 10^6/uL (4.1-5.3) 01/20/23 21:15 Hgb 14.2 g/dL (11.7-16.6) 01/20/23 21:15 Hct 42.1 % (42.0-52.0) 01/20/23 21:15 MCV 87.0 fl (80-94) 01/20/23 21:15 MCH 29.3 pg (28.0-34.0) 01/20/23 21:15 MCHC 33.7 g/dL (30.0-36.0) 01/20/23 21:15 RDW 12.7 % (12.1-15.1) 01/20/23 21:15 Plt Count 216 10^3/cmm (130-400) 01/20/23 21:15 MPV 12.0 fL (7.4-10.4) H 01/20/23 21:15 Neut % (Auto) 44.6 % 01/20/23 21:15 Lymph % (Auto) 32.4 % 01/20/23 21:15 [place] % (Auto) 14.6 % 01/20/23 21:15 Eos % (Auto) 7.8 % 01/20/23 21:15 Baso % (Auto) 0.3 % 01/20/23 21:15 Neut # (Auto) 2.96 10^3/uL (1.8-7.7) 01/20/23 21:15 Lymph # (Auto) 2.2 10^3/uL (0.8-4.8) 01/20/23 21:15 [place] # (Auto) 1.0 10^3/uL (0.2-0.9) H 01/20/23 21:15 Eos # (Auto) 0.5 10^3/uL (0.0-0.8) 01/20/23 21:15 Baso # (Auto) 0.0 10^3/uL (0.0-0.1) 01/20/23 21:15 Nucleated RBC % (auto) 0 % 01/20/23 21:15 Nucleated RBCs # 0.0 /100WBC 01/20/23 21:15 Sodium 140 mmol/L (136-145) 01/20/23 21:15 Potassium 3.7 mmol/L (3.5-5.1) 01/20/23 21:15 Chloride 103 mmol/L (98-107) 01/20/23 21:15 Carbon Dioxide 23 mmol/L (22-29) 01/20/23 21:15 Anion Gap 17.7 (5-19) 01/20/23 21:15 BUN 7 mg/dL (6-20) 01/20/23 21:15 Creatinine 1.0 mg/dL (0.7-1.2) 01/20/23 21:15 GFR Calculation 91.8 mL/min (90-130) 01/20/23 21:15 Glucose 118 mg/dL (65-115) H 01/20/23 21:15 Calculated Osmolality 289 mOsm/kg (285-295) 01/20/23 21:15 Calcium 8.8 mg/dL (8.5-10.5) 01/20/23 21:15 Total Bilirubin 0.4 mg/dL (0.15-1.2) 01/20/23 21:15 AST 30 U/L (0-40) 01/20/23 21:15 ALT 9 U/L (0-41) 01/20/23 21:15 Alkaline Phosphatase 91 U/L (40-130) 01/20/23 21:15 Lactate Dehydrogenase 161 U/L (135-225) 01/20/23 21:15 Total Protein 7.1 g/dL (6.6-8.7) 01/20/23 21:15 Albumin 4.3 g/dL (3.5-5.2) 01/20/23 21:15 Globulin 2.8 g/dL (1.3-4.6) 01/20/23 21:15 Discharge Plan Discharge Patient Disposition: Home Clinical Impression: Seizure disorder Condition: Stable Prescriptions: No Action (DME) Cam Boot to the right ankle See Rx Instructions .Route .MEDSUPPLY Qty: 1 0RF Rx Instructions: As directed (DME) ASO to right ankle See Rx Instructions .Route .MEDSUPPLY Qty: 1 0RF Rx Instructions: As directed divalproex 500 mg tablet,delayed release (DR/EC) 1,000 mg PO BID Xcopri 100 mg tablet 100 mg PO DAILY Rx Instructions: administer weeks 7 and 8 of therapy lorazepam 1 mg tablet 1 mg PO TID PRN tramadol 50 mg tablet 50 mg PO Q8H PRN (Reason: muscle pain) Qty: 20 0RF ondansetron 4 mg tablet,disintegrating 4 mg PO Q6H PRN (Reason: nausea and vomiting) Qty: 14 0RF Naprosyn 500 mg tablet 500 mg PO BID PRN (Reason: pain) Qty: 20 0RF amoxicillin 500 mg tablet Discharge Orders: Discharge ED (Routine); Ordered 01/20/23 Ordered By: Corby Gaona Referrals: Jhonatan Ellis MD [Primary Care Provider] - Patient Instructions: Opioid Safety, Pain Management Coding Level of Care Code ED Crust Sorter for Eddie Rosales
[2023-01-20 22:20] VITALS: BP 119/73; PULSE 79; RESP 16; O2SAT 99
[2023-01-20 22:25] LABS: Basophils % 0.3 %; Eosinophils # 0.5 10^3/uL (0.0-0.8); Eosinophils % 7.8 %; Hematocrit 42.1 % (42.0-52.0); Hemoglobin 14.2 g/dL (11.7-16.6); Lymphocytes # 2.2 10^3/uL (0.8-4.8); Lymphocytes % 32.4 %; Mean Corpuscular HGB Conc 33.7 g/dL (30.0-36.0); Mean Corpuscular Hemoglobin 29.3 pg (28.0-34.0); Monocytes % 14.6 %; Neutrophils # 2.96 10^3/uL (1.8-7.7); Neutrophils % 44.6 %; Nucleated Red Blood Cells % 0 %; Platelet Count 216 10^3/cmm (130-400); Red Blood Count 4.84 10^6/uL (4.1-5.3); Red Cell Distribution Width 12.7 % (12.1-15.1); White Blood Count 6.6 10^3/uL (4.0-10.0)
[2023-01-20 22:37] VITALS: BP 119/73; PULSE 88; RESP 18; O2SAT 96
[2023-01-20 23:04] LABS: Alanine Aminotransferase 9 U/L (0-41); Albumin Level 4.3 g/dL (3.5-5.2); Alkaline Phosphatase 91 U/L (40-130); Blood Urea Nitrogen 7 mg/dL (6-20); Calcium 8.8 mg/dL (8.5-10.5); Carbon Dioxide 23 mmol/L (22-29); Chloride 103 mmol/L (98-107); Globulin 2.8 g/dL (1.3-4.6); Glomerular Filtration Rate 91.8 mL/min (90-130); Glucose 118 mg/dL (65-115); Osmolality Calculated 289 mOsm/kg (285-295); Sodium 140 mmol/L (136-145); Total Bilirubin 0.4 mg/dL (0.15-1.2); Total Protein 7.1 g/dL (6.6-8.7)
[2023-01-20 23:14] LABS: Aspartate Amino Transferase 30 U/L (0-40); Lactate Dehydrogenase 161 U/L (135-225)
[2023-01-20 23:23] LABS: Anion Gap 17.7 (5-19); Potassium 3.7 mmol/L (3.5-5.1)
[2023-01-20 23:30] VITALS: BP 113/62; PULSE 68; RESP 16; O2SAT 98
[2023-01-20 23:45] VITALS: BP 119/73; PULSE 108; RESP 18; O2SAT 99
== END 2023-01-20 23:47 | disposition home or self-care (01) ==
PROVIDERS: Emergency Provider Internal Medicine; PCP Family Medicine Adult Medicine
DX: G40.909 Epilepsy, unspecified, not intractable, without status epilepticus (principal); Z79.899 Other long term (current) drug therapy
CPT/HCPCS: 80053; 83615; 85025; 99283

== ENCOUNTER 2023-02-25 07:54 | Outpatient (CLI) | payer OTHER, MEDICAID, SELFPAY ==
--- NOTE | 2023-02-25 08:03 | US_ITS ---
WS: [id number] RIGHT UPPER QUADRANT ULTRASOUND HISTORY: UPPER ABDOMINAL PAIN/NAUSEA VOMITING COMPARISON: None available. Liver: 14.2 cm in length. Normal size liver and echogenicity. No bile duct dilatation or mass. Portal Vein: Normal hepatopetal flow with monophasic waveform. Gallbladder: Normally distended gallbladder with no stones or wall thickening. CBD: 0.2 cm Pancreas: Normal size and echogenicity. Right kidney: 11.8 cm in length. Normal size and echogenicity. No hydronephrosis or mass. Aorta and IVC: Unremarkable abdominal aorta and IVC. No ascites. IMPRESSION: Normal RIGHT upper quadrant ultrasound.
== END 2023-02-25 07:55 | disposition home or self-care (01) ==
PROVIDERS: PCP Family Medicine; Visit Provider Family Medicine
DX: R10.10 Upper abdominal pain, unspecified (principal); R11.2 Nausea with vomiting, unspecified
CPT/HCPCS: 76705

== ENCOUNTER 2023-08-26 15:22 | Emergency (ER) | payer MEDICARE, MEDICAID, SELFPAY ==
[2023-08-26 15:28] VITALS: BP 122/66; PULSE 93; RESP 16; TEMP 36.3; O2SAT 100
--- NOTE | 2023-08-26 15:31 | ECG_ITS ---
[facility] Test Date: 2023-08-26 Pat Name: Ileana Gomes Department: Room: Gender: Male Concrete Curer: : 2000 Requested By: Prosper Gutierrez Order Number: [id number] Neto MD: Gage Amado M.D. Measurements Intervals [place] Rate: 96 P: 69 CT: 138 QRS: 78 QRSD: 98 T: 60 QT: 358 QTc: 453 Interpretive Statements SINUS RHYTHM POSSIBLE LEFT ATRIAL ENLARGEMENT [-0.1mV P-WAVE IN V1/V2] NONSPECIFIC T-WAVE ABNORMALITY Compared to ECG 03/12/2021 07:41:52 T-wave abnormality now present ST (T wave) deviation no longer present Early repolarization no longer present Electronically Signed On 08-26-2023 23:06:07 CDT by Gage Amado M.D. [email or web address]
--- NOTE | 2023-08-26 15:46 | XRR_ITS ---
PROCEDURE INFORMATION: Exam: XR Chest Exam date and time: 08/26/2023 4:36 PM Age: 23 years old Clinical indication: Dyspnea and shortness of breath; Additional info: Dyspnea/cough TECHNIQUE: Imaging protocol: Radiologic exam of the chest. Views: 1 view. COMPARISON: CR XR chest 1V portable [id number] 03/12/2021 7:44 AM FINDINGS: Lungs: Unremarkable. No consolidation. Pleural spaces: Unremarkable. No pleural effusion. No pneumothorax. Heart/Mediastinum: Unremarkable. No cardiomegaly. Bones/joints: Unremarkable. XR/XR chest 1V portable [id number] IMPRESSION: No acute radiographic findings.
--- NOTE | 2023-08-26 15:48 | PC.PHAR ---
pts verified pts medications-states the dr had dced all his and just recently started him back on divalproex dr 500mg qam sandee last filled 08/01/23 30d/s-pts states the pt was on tamiflu about 2 weeks ago-pts states taking no otc meds
[2023-08-26 16:10] VITALS: PULSE 63; O2SAT 100
--- NOTE | 2023-08-26 16:10 | ED_ITS ---
Documented by User: Prosper Kelsey DO 08/27/23 06:55 HPI - Chest Pain 2 General: Chief Complaint: Chest Pain Stated Complaint: chest pain Time Seen by Provider: 08/26/23 15:46 History of Present Illness: 23-year-old male presents emergency room with complaints of left upper quadrant. No mild shortness of breath. He denies any chest pain. He is a little vague about his symptoms. He became very agitated just when being asked routine history questions initially. He denies any hematochezia melena hematemesis coffee-ground emesis dysuria urgency or frequency or hematuria no history of kidney stones he has previously had his appendix out no other abdominal surgeries. Presents to the ER with complaints of left lower chest wall type pain as well as left upper quadrant type pain. Patient said he was helping his carrying packages a day when he got dizzy short of breath and can get a tingly feeling per his . 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 However this is totally different than him. Patient says his chest wall and upper abdomen hurt when he takes a big deep breath and also when people palpate them. Patient did say he had influenza a approximately month ago. Patient also had about a 50 pound weight loss over the last 4 months due to a general decrease in appetite. Patient denies any fever or chills. Patient is never had any pain like this before. Onset (ago): week(s) Timing of current episode: episodic Prior episodes: Yes Onset: during rest Pain location: left chest Pain radiation: none Relieving factors: nothing Exacerbating factors: nothing Associated symptoms: Reports abdominal pain; Deny diaphoresis, dyspnea, fever(s), leg edema, nausea, palpitations, sense of impending doom, syncope or vomiting Treatment prior to arrival: none Review of Systems 2 Const: Denies: fever(s), chills or diaphoresis Card: Reports: chest pain; Denies: palpitations or syncope Resp: Denies: dyspnea GI: Reports: abdominal pain; Denies: nausea or vomiting : Denies: dysuria, urinary frequency or urinary urgency Musc: Denies: neck pain or back pain Skin/Breast: Denies: rash PFSH ED 2 PFSH: Medical History Myalgia and myositis Anxiety and depression Depression due to physical illness Seizure disorder Acute left-sided weakness Resolved after the first 1-2 weeks from his first seizure. Surgical History History of appendectomy Family History Father Epilepsy Other CAD (coronary artery disease) Cancer Diabetes Hyperlipidemia Hypertension Lung disease Stroke Social History Smoking and tobacco/nicotine status: never used tobacco/nicotine Alcohol intake: current Alcohol intake frequency: holidays/special occasions only Alcohol type: beer Substance/Drug Use: never Household members: family Marital status: Single Number of children: 1 Current occupational status: employed Physical Exam 2 Const: GENERAL APPEARANCE: cooperative and comfortable O RIENTATION/CONSCIOUSNESS: Yes awake, Yes oriented to person, Yes oriented to place and Yes oriented to time GI: AUSCULTATION: Yes normoactive bowel sounds Extremity: COMMON NORMALS: normal to inspection, capillary refill normal, no clubbing, cyanosis or edema, no calf tenderness and no pedal edema Neuro: SENSORIUM/ORIENTATION: Yes oriented to person, Yes oriented to place and Yes oriented to time Skin: COMMON NORMALS: no rashes or lesions noted GENERAL SKIN EXAM: no rashes or lesions noted Course 2 Vital Signs: Vital signs: Vital Signs Temperature 97.3 F L 08/26/23 18:10 Pulse Rate 63 08/26/23 18:10 Respiratory Rate 16 08/26/23 18:10 Blood Pressure 122/66 08/26/23 18:10 Pulse Oximetry 100 08/26/23 18:10 Oxygen Delivery Me thod Room Air 08/26/23 16:10 MDM - Chest Pain Medical Decision Making Care signed out to Dr. Lei at change of shift. See final notes for diagnosis and disposition. Patient was worked up in a standard fashion as well as getting abdomen pelvis CT. Lab work was essentially unremarkable except potassium 3.4, CO2 of 21, 1+ ketones in the urine, and a valproic acid level of 2.8, these results was discussed with the patient how this is most likely noncardiac in nature. It is probably irritation of the costal margin of the ribs as well as left upper quadrant pain. They are to follow-up with her primary care physician within the next 7 days for further evaluation testing as needed. Lab Data 08/26/23 16:07 08/26/23 16:07 Radiology Impressions Chest X-Ray 08/26/23 15:46 IMPRESSION: No acute radiographic findings. Abdomen/Pelvis CT 08/26/23 16:24 IMPRESSION: 1. No CT evidence of acute intra-abdominal or pelvic pathology. 2. Additional findings, as above. Laboratory Results WBC 6.76 10^3/uL (3.29-11.43) 08/26/23 16:07 RBC 4.87 10^6/uL (3.85-5.65) 08/26/23 16:07 Hgb 14.40 g/dL (11.27-16.99) 08/26/23 16:07 Hct 42.6 % (37-53) 08/26/23 16:07 MCV 87.5 fl (82-101) 08/26/23 16:07 MCH 29.6 pg (27-33) 08/26/23 16:07 MCHC 33.8 g/dL (30-55) 08/26/23 16:07 RDW 12.6 % (12.1-15.1) 08/26/23 16:07 Plt Count 312 10^3/cmm (157-399) 08/26/23 16:07 MPV 12.0 fL (7.4-10.4) H 08/26/23 16:07 Neut % (Auto) 32.6 % 08/26/23 16:07 Lymph % (Auto) 53.3 % 08/26/23 16:07 [place] % (Auto) 9.3 % 08/26/23 16:07 Eos % (Auto) 4.4 % 08/26/23 16:07 Baso % (Auto) 0.3 % 08/26/23 16:07 Neut # (Auto) 2.20 10^3/uL (1.8-7.7) 08/26/23 16:07 Lymph # (Auto) 3.6 10^3/uL (0.8-4.8) 08/26/23 16:07 [place] # (Auto) 0.6 10^3/uL (0.2-0.9) 08/26/23 16:07 Eos # (Auto) 0.3 10^3/uL (0.0-0.8) 08/26/23 16:07 Baso # (Auto) 0.0 10^3/uL (0.0-0.1) 08/26/23 16:07 Nucleated RBC % (auto) 0 % 08/26/23 16:07 Nucleated RBCs # 0.0 /100WBC 08/26/23 16:07 Sodium 137 mmol/L (136-145) 08/26/23 16:07 Potassium 3.4 mmol/L (3.5-5.1) L 08/26/23 16:07 Chloride 100 mmol/L (98-107) 08/26/23 16:07 Carbon Dioxide 21 mmol/L (22-29) L 08/26/23 16:07 Anion Gap 19.4 (5-19) H 08/26/23 16:07 BUN 8 mg/dL (6-20) 08/26/23 16:07 Creatinine 0.8 mg/dL (0.7-1.2) 08/26/23 16:07 GFR Calculation 117.8 mL/min (90-130) 08/26/23 16:07 Glucose 110 mg/dL (65-115) 08/26/23 16:07 Calculated Osmolality 283 mOsm/kg (285-295) L 08/26/23 16:07 Calcium 9.9 mg/dL (8.5-10.5) 08/26/23 16:07 Total Bilirubin 0.4 mg/dL (0.15-1.2) 08/26/23 16:07 AST 19 U/L (0-40) 08/26/23 16:07 ALT 15 U/L (0-41) 08/26/23 16:07 Alkaline Phosphatase 65 U/L (40-130) 08/26/23 16:07 Total Protein 7.8 g/dL (6.6-8.7) 08/26/23 16:07 Albumin 4.6 g/dL (3.5-5.2) 08/26/23 16:07 Globulin 3.2 g/dL (1.3-4.6) 08/26/23 16:07 Lipase 58 U/L (13-60) 03/12/24 16:07 Urine Color Yellow (Yellow) 08/26/23 16:19 Urine Appearance Clear (CLEAR) 08/26/23 16:19 Urine pH 8 (5-7) H 08/26/23 16:19 Ur Specific [place] 1.010 (1.005-1.030) 08/26/23 16:19 Urine Protein Neg (Negative) 08/26/23 16:19 Urine Glucose (UA) Norm (Normal) 08/26/23 16:19 Urine Ketones 1+ (Negative) H 08/26/23 16:19 Urine Blood Neg (Negative) 08/26/23 16:19 Urine Nitrate Negative (Negative) 08/26/23 16:19 Urine Bilirubin Neg (Negative) 08/26/23 16:19 Urine Urobilinogen Norm mg/dL (Negative) 08/26/23 16:19 Ur Leukocyte Esterase Negative (Negative) 08/26/23 16:19 Valproic Acid 2.8 ug/mL (50-100) L 08/26/23 16:07 Discharge Plan Discharge Patient Disposition: Home Clinical Impression: Costalchondritis, Abdominal pain, acute, left upper quadrant Condition: Stable Prescriptions: No Action (DME) Cam Boot to the right ankle See Rx Instructions .Route .MEDSUPPLY Qty: 1 0RF Rx Instructions: As directed (DME) ASO to right ankle See Rx Instructions .Route .MEDSUPPLY Qty: 1 0RF Rx Instructions: As directed divalproex 500 mg tablet,delayed release (DR/EC) 500 mg PO DAILY Discharge Orders: Discharge ED (Routine); Ordered 08/26/23 Ordered By: Romel Lei Referrals: Danni Arzola DO [Primary Care Provider] - Patient Instructions: Costochondritis - Adult, Abdominal Pain (ED) Activity Restrictions/Additional Instructions: Your lab work, urinalysis, abdomen pelvis CT were all unremarkable. It is thought you have costochondritis and left upper quadrant abdominal pain. Please follow-up with your primary care physician within next 7 days for further evaluation testing as needed. If your pain worsens or becomes unbearable please feel free to return to the ER. Coding Level of Care Code ED Engraved Roller Inspector for Chg Fwd Documented by User: Romel Lei DO 08/26/23 22:11 HPI - Chest Pain 2 General: Chief Complaint: Chest Pain Stated Complaint: chest pain Time Seen by Provider: 08/26/23 15:46 History of Present Illness: Presents to the ER with complaints of left lower chest wall type pain as well as left upper quadrant type pain. Patient said he was helping his carrying packages a day when he got dizzy short of breath and can get a tingly feeling per his . 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 However this is totally different than him. Patient says his chest wall and upper abdomen hurt when he takes a big deep breath and also when people palpate them. Patient did say he had influenza a approximately month ago. Patient also had about a 50 pound weight loss over the last 4 months due to a general decrease in appetite. Patient denies any fever or chills. Patient is never had any pain like this before. Review of Systems 2 General: Reports: 10 or more systems reviewed and unremarkable except in HPI and below PFSH ED 2 PFSH: Medical History Myalgia and myositis Anxiety and depression Depression due to physical illness Seizure disorder Acute left-sided weakness Resolved after the first 1-2 weeks from his first seizure. Surgical History History of appendectomy Family History Father Epilepsy Other CAD (coronary artery disease) Cancer Diabetes Hyperlipidemia Hypertension Lung disease Stroke Social History Smoking and tobacco/nicotine status: never used tobacco/nicotine Alcohol intake: current Alcohol intake frequency: holidays/special occasions only Alcohol type: beer Substance/Drug Use: never Household members: family Marital status: Single Number of children: 1 Current occupational status: employed Physical Exam 2 Const: COMMON NORMALS: no acute distress, average body habitus, patient oriented x3, no limitations, healthy appearing, alert and well nourished HENMT: COMMON NORMALS: normocephalic, atraumatic, hearing grossly normal bilaterally, external ears normal and Normal external nose present HEAD & SCALP: normocephalic and atraumatic NOSE: Normal external nose present E XTERNAL EAR: Yes external ears normal Eye: COMMON NORMALS: Equal, round and reactive pupils present, EOMs intact bilaterally, conjunctivae normal and no scleral icterus CONJUNCTIVA: Yes conjunctivae normal PUPIL: Yes Equal, round and reactive pupils present Neck/C-Spine: COMMON NORMALS: no JVD Chest: COMMONS NORMALS: normal inspection of the chest; negative for normal palpation of entire chest wall (Pain with palpation of left lower costochondral margin) Resp: COMMON NORMALS: normal respiratory effort, No retractions, No use of accessory muscles and clear to auscultation bilaterally AUSCULTATION: clear to auscultation bilaterally Cardio: COMMON NORMALS: no JVD, regular rate, regular rhythm, S1 normal heart sound present, S2 normal heart sound present, No gallops present (Cardio), No clicks present (Cardio), No murmurs present (Cardio) and No rub (Cardio) R ATE: regular rate RHYTHM: regular rhythm HEART SOUNDS: S1 normal heart sound present and S2 normal heart sound present GI: COMMON NORMALS: Normal to inspection, nondistended, normoactive bowel sounds present, Soft to palpation, No hepatosplenomegaly present and no masses; negative for non-tender (Tenderness to palpate left upper quadrant) P ALPATION: Yes Soft to palpation and Yes No hepatosplenomegaly present Neuro: COMMON NORMALS: patient oriented x3 SENSORIUM/ORIENTATION: Yes alert Course 2 Vital Signs: Vital signs: Vital Signs Temperature 97.3 F L 08/26/23 18:10 Pulse Rate 63 08/26/23 18:10 Respiratory Rate 16 08/26/23 18:10 Blood Pressure 122/66 08/26/23 18:10 Pulse Oximetry 100 08/26/23 18:10 Oxygen Delivery Me thod Room Air 08/26/23 16:10 MDM - Chest Pain Medical Decision Making Patient was worked up in a standard fashion as well as getting abdomen pelvis CT. Lab work was essentially unremarkable except potassium 3.4, CO2 of 21, 1+ ketones in the urine, and a valproic acid level of 2.8, these results was discussed with the patient how this is most likely noncardiac in nature. It is probably irritation of the costal margin of the ribs as well as left upper quadrant pain. They are to follow-up with her primary care physician within the next 7 days for further evaluation testing as needed. Differential Diagnosis Unlikely acute massive pulmonary embolism, acute respiratory failure, acute myocardial infarction, cardiac arrest or sudden cardiac Medical Records I reviewed the patient's medical records. Lab Data I reviewed the patient's lab results. 08/26/23 16:07 08/26/23 16:07 Radiology Impressions Chest X-Ray 08/26/23 15:46 IMPRESSION: No acute radiographic findings. Abdomen/Pelvis CT 08/26/23 16:24 IMPRESSION: 1. No CT evidence of acute intra-abdominal or pelvic pathology. 2. Additional findings, as above. Laboratory Results WBC 6.76 10^3/uL (3.29-11.43) 08/26/23 16:07 RBC 4.87 10^6/uL (3.85-5.65) 08/26/23 16:07 Hgb 14.40 g/dL (11.27-16.99) 08/26/23 16:07 Hct 42.6 % (37-53) 08/26/23 16:07 MCV 87.5 fl (82-101) 08/26/23 16:07 MCH 29.6 pg (27-33) 08/26/23 16:07 MCHC 33.8 g/dL (30-55) 08/26/23 16:07 RDW 12.6 % (12.1-15.1) 08/26/23 16:07 Plt Count 312 10^3/cmm (157-399) 08/26/23 16:07 MPV 12.0 fL (7.4-10.4) H 08/26/23 16:07 Neut % (Auto) 32.6 % 08/26/23 16:07 Lymph % (Auto) 53.3 % 08/26/23 16:07 [place] % (Auto) 9.3 % 08/26/23 16:07 Eos % (Auto) 4.4 % 08/26/23 16:07 Baso % (Auto) 0.3 % 08/26/23 16:07 Neut # (Auto) 2.20 10^3/uL (1.8-7.7) 08/26/23 16:07 Lymph # (Auto) 3.6 10^3/uL (0.8-4.8) 08/26/23 16:07 [place] # (Auto) 0.6 10^3/uL (0.2-0.9) 08/26/23 16:07 Eos # (Auto) 0.3 10^3/uL (0.0-0.8) 08/26/23 16:07 Baso # (Auto) 0.0 10^3/uL (0.0-0.1) 08/26/23 16:07 Nucleated RBC % (auto) 0 % 08/26/23 16:07 Nucleated RBCs # 0.0 /100WBC 08/26/23 16:07 Sodium 137 mmol/L (136-145) 08/26/23 16:07 Potassium 3.4 mmol/L (3.5-5.1) L 08/26/23 16:07 Chloride 100 mmol/L (98-107) 08/26/23 16:07 Carbon Dioxide 21 mmol/L (22-29) L 08/26/23 16:07 Anion Gap 19.4 (5-19) H 08/26/23 16:07 BUN 8 mg/dL (6-20) 08/26/23 16:07 Creatinine 0.8 mg/dL (0.7-1.2) 08/26/23 16:07 GFR Calculation 117.8 mL/min (90-130) 08/26/23 16:07 Glucose 110 mg/dL (65-115) 08/26/23 16:07 Calculated Osmolality 283 mOsm/kg (285-295) L 08/26/23 16:07 Calcium 9.9 mg/dL (8.5-10.5) 08/26/23 16:07 Total Bilirubin 0.4 mg/dL (0.15-1.2) 08/26/23 16:07 AST 19 U/L (0-40) 08/26/23 16:07 ALT 15 U/L (0-41) 08/26/23 16:07 Alkaline Phosphatase 65 U/L (40-130) 08/26/23 16:07 Total Protein 7.8 g/dL (6.6-8.7) 08/26/23 16:07 Albumin 4.6 g/dL (3.5-5.2) 08/26/23 16:07 Globulin 3.2 g/dL (1.3-4.6) 08/26/23 16:07 Lipase 58 U/L (13-60) 08/26/23 16:07 Urine Color Yellow (Yellow) 08/26/23 16:19 Urine Appearance Clear (CLEAR) 08/26/23 16:19 Urine pH 8 (5-7) H 08/26/23 16:19 Ur Specific [place] 1.010 (1.005-1.030) 08/26/23 16:19 Urine Protein Neg (Negative) 08/26/23 16:19 Urine Glucose (UA) Norm (Normal) 08/26/23 16:19 Urine Ketones 1+ (Negative) H 08/26/23 16:19 Urine Blood Neg (Negative) 08/26/23 16:19 Urine Nitrate Negative (Negative) 08/26/23 16:19 Urine Bilirubin Neg (Negative) 08/26/23 16:19 Urine Urobilinogen Norm mg/dL (Negative) 08/26/23 16:19 Ur Leukocyte Esterase Negative (Negative) 08/26/23 16:19 Valproic Acid 2.8 ug/mL (50-100) L 08/26/23 16:07 All radiology interpretation(s) finalized by discharge Discharge Plan Discharge Patient Disposition: Home Clinical Impression: Costalchondritis, Abdominal pain, acute, left upper quadrant Condition: Stable Prescriptions: No Action (DME) Cam Boot to the right ankle See Rx Instructions .Route .MEDSUPPLY Qty: 1 0RF Rx Instructions: As directed (DME) ASO to right ankle See Rx Instructions .Route .MEDSUPPLY Qty: 1 0RF Rx Instructions: As directed divalproex 500 mg tablet,delayed release (DR/EC) 500 mg PO DAILY Discharge Orders: Discharge ED (Routine); Ordered 08/26/23 Ordered By: Romel Lei Referrals: Danni Arzola DO [Primary Care Provider] - Patient Instructions: Costochondritis - Adult, Abdominal Pain (ED) Activity Restrictions/Additional Instructions: Your lab work, urinalysis, abdomen pelvis CT were all unremarkable. It is thought you have costochondritis and left upper quadrant abdominal pain. Please follow-up with your primary care physician within next 7 days for further evaluation testing as needed. If your pain worsens or becomes unbearable please feel free to return to the ER. Coding Level of Care Code ED Engraved Roller Inspector for Eddie Rosales
[2023-08-26 16:22] LABS: Basophils % 0.3 %; Eosinophils # 0.3 10^3/uL (0.0-0.8); Eosinophils % 4.4 %; Hematocrit 42.6 % (37-53); Lymphocytes # 3.6 10^3/uL (0.8-4.8); Lymphocytes % 53.3 %; Mean Corpuscular HGB Conc 33.8 g/dL (30-55); Mean Corpuscular Hemoglobin 29.6 pg (27-33); Mean Corpuscular Volume 87.5 fl (82-101); Monocytes # 0.6 10^3/uL (0.2-0.9); Monocytes % 9.3 %; Neutrophils % 32.6 %; Nucleated Red Blood Cells % 0 %; Platelet Count 312 10^3/cmm (157-399); Red Blood Count 4.87 10^6/uL (3.85-5.65); Red Cell Distribution Width 12.6 % (12.1-15.1); White Blood Count 6.76 10^3/uL (3.29-11.43)
--- NOTE | 2023-08-26 16:24 | CTR_ITS ---
PROCEDURE INFORMATION: Exam: CT Abdomen And Pelvis With Contrast Exam date and time: 08/26/2023 4:32 PM Age: 23 years old Clinical indication: Abdominal pain; Localized; Left upper quadrant (luq); Prior surgery; Surgery date: 6+ months; Surgery type: Appy; Additional info: Abd pain TECHNIQUE: Imaging protocol: Computed tomography of the abdomen and pelvis with contrast. Axial, coronal and sagittal reformatted images were created and reviewed. Radiation optimization: All CT scans at this facility use at least one of these dose optimization techniques: automated exposure control; mA and/or kV adjustment per patient size (includes targeted exams where dose is matched to clinical indication); or iterative reconstruction. Contrast material: OMNI 350; Contrast volume: 100 ml; Contrast route: INTRAVENOUS (IV); COMPARISON: CT kidney stone [id number] 10/17/2022 10:04 PM RADIATION DOSE METRICS: Total DLP (mGy-cm): 381.37 FINDINGS: Liver: Unremarkable. Gallbladder and bile ducts: No radiodense gallstones. No biliary ductal dilatation. Pancreas: Unremarkable. Spleen: Unremarkable. Adrenal glands: Normal. No mass. Kidneys and ureters: No mass. No radiodense calculi. No hydronephrosis. Stomach and bowel: No bowel wall thickening. No obstruction. No pneumatosis. Appendix: Status post appendectomy by history. Intraperitoneal space: No free fluid. No organized fluid collection. No free air. Vasculature: Unremarkable. No aneurysm. Lymph nodes: No pathologically enlarged lymph nodes. Urinary bladder: Unremarkable as visualized. Reproductive: Unremarkable. Bones/joints: No acute osseous abnormality. Mild degenerative changes. Soft tissues: Unremarkable. CT/CT abdomen pelvis w con* [id number] IMPRESSION: 1. No CT evidence of acute intra-abdominal or pelvic pathology. 2. Additional findings, as above.
[2023-08-26] MEDS: iohexol 350 mg/mL 500 mL Btl (per mL) IV (16:32)
[2023-08-26 16:38] LABS: Alanine Aminotransferase 15 U/L (0-41); Albumin Level 4.6 g/dL (3.5-5.2); Alkaline Phosphatase 65 U/L (40-130); Anion Gap 19.4 (5-19); Aspartate Amino Transferase 19 U/L (0-40); Blood Urea Nitrogen 8 mg/dL (6-20); Calcium 9.9 mg/dL (8.5-10.5); Carbon Dioxide 21 mmol/L (22-29); Chloride 100 mmol/L (98-107); Creatinine Clr Calc Pharmacy 146.9325; Globulin 3.2 g/dL (1.3-4.6); Glomerular Filtration Rate 117.8 mL/min (90-130); Glucose 110 mg/dL (65-115); Lipase 58 U/L (13-60); Osmolality Calculated 283 mOsm/kg (285-295); Potassium 3.4 mmol/L (3.5-5.1); Sodium 137 mmol/L (136-145); Total Bilirubin 0.4 mg/dL (0.15-1.2); Total Protein 7.8 g/dL (6.6-8.7)
[2023-08-26 16:58] LABS: Add Urine Microscopic? NO; Charge for UA Resulting for Rev
[2023-08-26 17:05] LABS: Valproic Acid Level 2.8 ug/mL (50-100)
[2023-08-26 17:44] LABS: Bilirubin Urine Neg (Negative); Blood Urine Neg (Negative); Glucose Urine UA Norm (Normal); Ketones Urine 1+ (Negative); Leukocyte Esterase Urine Negative (Negative); Nitrate Urine Negative (Negative); Protein Urine Neg (Negative); Urine Appearance Clear (CLEAR); Urine Color Yellow (Yellow); Urobilinogen Urine Norm (Negative); pH Urine 8 (5-7)
[2023-08-26 18:10] VITALS: BP 122/66; PULSE 63; RESP 16; TEMP 36.3; O2SAT 100
== END 2023-08-26 18:11 | disposition home or self-care (01) ==
PROVIDERS: Family Medicine; Emergency Provider Emergency Medicine; PCP Family Medicine
DX: M94.0 Chondrocostal junction syndrome [Tietze] (principal); R10.12 Left upper quadrant pain
CPT/HCPCS: 71045; 74177; 80053; 80164; 81003; 83690; 85025; 93005; 99285; Q9967

== ENCOUNTER 2024-05-05 09:59 | Emergency (ER) | payer MEDICARE, SELFPAY ==
[2024-05-05 10:24] VITALS: BP 108/68; PULSE 75; RESP 16; TEMP 36.5; O2SAT 100; BMI 20.3
[2024-05-05 11:07] VITALS: BP 121/75; PULSE 61; RESP 18; O2SAT 99
--- NOTE | 2024-05-05 11:12 | XR_ITS ---
WS: [id number] Exam: XR lumbar spine 2-3V* [id number] Date/Time of Exam: 05/05/2024 11:12 AM Reason For Exam: back pain No fracture or dislocation. Disc bases are preserved. Posterior elements are intact. Mild straighteni ng. XR/XR lumbar spine 2-3V* [id number] IMPRESSION: 1. Mild straightening otherwise negative lumbar spine study.
--- NOTE | 2024-05-05 11:16 | ED_ITS ---
HPI - Back Pain/Injury General: Chief Complaint: Back Pain/Injury Stated Complaint: back pain Time Seen by Provider: 05/05/24 11:05 Source: patient Mode of arrival: ambulatory Limitations: no limitations History of Present Illness: 23-year-old male who states he picked up his daughter last night and started having sharp severe left lower back pain. States he feels like 7 spasms in the left lower back denies any radiation of the pain he denies any bowel or bladder incontinence states its much worse with movement and when he tries to ambulate. Rates the pain an 8 out of 10 currently Associated symptoms: Deny abdominal pain, chills, fever(s), nausea or vomiting Related Data Previous Rx's Medication Instructions Recorded ASO to right ankle #1 ea 12/09/22 Cam Boot to the right ankle #1 ea 12/09/22 methocarbamol 750 mg tablet 750 mg PO Q6H PRN spasms #20 tabs 05/05/24 naproxen 500 mg tablet (Naprosyn) 500 mg PO BID PRN pain #20 tabs 05/05/24 Allergies Allergy/AdvReac Type Severity Reaction Status Date / Time No Known Allergies Allergy Verified 05/05/24 10:31 Review of Systems Const: Denies: fever(s), chills, body aches or change in appetite ENMT: Denies: throat pain or dental pain Card: Denies: chest pain Resp: Denies: dyspnea GI: Denies: abdominal pain, nausea, vomiting or diarrhea Musc: Reports: back pain; Denies: neck pain Skin/Breast: Denies: rash Neuro: Denies: headache(s) PFSH ED PFSH: Medical History Myalgia and myositis Anxiety and depression Depression due to physical illness Seizure disorder Acute left-sided weakness Resolved after the first 1-2 weeks from his first seizure. Surgical History History of appendectomy Family History Father Epilepsy Other CAD (coronary artery disease) Cancer Diabetes Hyperlipidemia Hypertension Lung disease Stroke Social History Smoking and tobacco/nicotine status: never used tobacco/nicotine Alcohol intake: current Alcohol intake frequency: holidays/special occasions only Alcohol type: beer Substance/Drug Use: never Household members: family Marital status: Single Number of children: 1 Current occupational status: employed Physical Exam Const: COMMON NORMALS: no acute distress, patient oriented x3 and healthy appearing HENMT: COMMON NORMALS: normocephalic and atraumatic HEAD & SCALP: normocephalic and atraumatic Neck/C-Spine: COMMON NORMALS: full ROM and supple Chest: COMMONS NORMALS: normal inspection of the chest Resp: COMMON NORMALS: normal respiratory effort Cardio: COMMON NORMALS: regular rate, regular rhythm and No murmurs present (Cardio) RATE: regular rate RHYTHM: regular rhythm Back/Pelvis: OTHER: Tenderness over left lower back no midline tenderness no saddle anesthesia Extremity: COMMON NORMALS: normal to inspection and full ROM Neuro: COMMON NORMALS: patient oriented x3, moves all extremities and no focal motor deficits Psych: COMMON NORMALS: mental status grossly normal, Normal thought process present and cooperative THOUGHT PROCESS: Normal thought process present Skin: COMMON NORMALS: no rashes or lesions noted and no wounds GENERAL SKIN EXAM: no rashes or lesions noted Course Vital Signs: Vital signs: Vital Signs Temperature 97.7 F 05/05/24 10:24 Pulse Rate 62 05/05/24 12:12 Respiratory Rate 16 05/05/24 11:35 Blood Pressure 113/62 05/05/24 12:12 Pulse Oximetry 100 05/05/24 12:12 Oxygen Delivery Me thod Room Air 05/05/24 12:00 MDM - Back Pain/Injury Medical Decision Making Patient presents here with low back pain likely muscular in origin he is well- appearing here no midline tenderness no saddle anesthesia will prescribe Naprosyn Robaxin he stable for discharge follow-up with PCP return if worsening. Medical Records I reviewed the patient's medical records. Labs Radiology Impressions Lumbar Spine X-Ray 05/05/24 11:12 IMPRESSION: 1. Mild straightening otherwise negative lumbar spine study. All radiology interpretation(s) finalized by discharge Discharge Plan Discharge Patient Disposition: Home Clinical Impression: Low back pain Condition: Stable Prescriptions: New methocarbamol 750 mg tablet 750 mg PO Q6H PRN (Reason: spasms) Qty: 20 0RF naproxen [Naprosyn] 500 mg tablet 500 mg PO BID PRN (Reason: pain) Qty: 20 0RF No Action (DME) Cam Boot to the right ankle See Rx Instructions .Route .MEDSUPPLY Qty: 1 0RF Rx Instructions: As directed (DME) ASO to right ankle See Rx Instructions .Route .MEDSUPPLY Qty: 1 0RF Rx Instructions: As directed Discharge Orders: Discharge ED (Routine); Ordered 05/05/24 Ordered By: Praveena Haas Referrals: Danni Arzola DO [Primary Care Provider] - 4-7 days Discharge Diet: Advance as tolerated Discharge Activity: Resume usual activity Patient Instructions: Acute Low Back Pain (ED) Coding Level of Care Code ED Infantry Unit Leader for Eddie Rosales
--- NOTE | 2024-05-05 11:20 | PC.PHAR ---
Pt states no longer takes Divalproex 500mg daily last fill 08/01/23. Removed from med list.
[2024-05-05 11:30] VITALS: BP 104/58; PULSE 65; RESP 16; O2SAT 100
[2024-05-05] MEDS: methocarbamol 750 mg Tablet 1500 MG PO (11:34)
[2024-05-05 11:35] VITALS: RESP 16; O2SAT 100
[2024-05-05] MEDS: morphine 4 mg/mL SDV 1 mL IM (11:35)
[2024-05-05] MEDS: ketorolac 60 mg/2 mL INJ IM (11:37)
[2024-05-05 12:00] VITALS: BP 84/55; PULSE 63; O2SAT 100
[2024-05-05 12:12] VITALS: BP 113/62; PULSE 62; O2SAT 100
== END 2024-05-05 12:13 | disposition home or self-care (01) ==
PROVIDERS: Emergency Provider Emergency Medicine; PCP Family Medicine
DX: M54.50 Low back pain, unspecified (principal)
CPT/HCPCS: 72100; 96372; 99284; J1885; J2270

== ENCOUNTER 2025-05-27 12:05 | Emergency (ER) | payer MEDICARE, SELFPAY ==
[2025-05-27 12:11] VITALS: BP 103/65; PULSE 60; RESP 17; TEMP 36.7; O2SAT 100; BMI 231.2
--- NOTE | 2025-05-27 12:16 | XR_ITS ---
WS: [id number] XR foot LT min 3V* [id number] REASON FOR EXAM: pain FINDINGS: No fracture or focal bone lesion. No periosteal reaction or bone erosion. Joint spaces of the forefoot, midfoot, and hindfoot are intact and well preserved. XR/XR foot LT min 3V* [id number] IMPRESSION: No significant bone or joint abnormality.
--- NOTE | 2025-05-27 12:37 | XR_ITS ---
WS: [id number] XR ankle LT min 3V* [id number] REASON FOR EXAM: injury FINDINGS: Soft tissue swelling most notably over the lateral malleolus. No acute fracture identified. The joint spaces of the ankle are intact and well preserved. XR/XR ankle LT min 3V* [id number] IMPRESSION: No significant bone or joint abnormality.
--- NOTE | 2025-05-27 12:38 | W.ED.LOWEXIN ---
HPI - Extremity Injury (Lower) General: Chief Complaint: Extremity Injury, Lower Stated Complaint: pain in left foot, knot on side of foot Time Seen by Provider: 05/27/25 12:32 Source: patient Mode of arrival: wheelchair Limitations: no limitations History of Present Illness: Patient is a 24-year-old male presents to ED today with a complaint of left foot and ankle pain/injury that began just earlier today. Patient states he was stepping off of his tractor when his foot/ankle inverted from stepping in a hole. Patient reports pain to the lateral aspect. He states he is not able to bear weight secondary to discomfort. No other injuries or complaints at this time. complaint: ankle injury and foot injury Onset (ago): hour(s) Injury: Left: ankle and foot Type of Injury: inversion Place: home Severity: moderate Relieving factors: immobilization Exacerbating factors: weight bearing, movement and palpation Context: walking Associated symptoms: Reports inability to bear weight Other symptoms: none Related Data Previous Rx's ?Medication ?Instructions ?Recorded ASO to right ankle #1 ea 12/09/22 Cam Boot to the right ankle #1 ea 12/09/22 methocarbamol 750 mg tablet 750 mg PO Q6H PRN spasms #20 tabs 05/05/24 naproxen 500 mg tablet (Naprosyn) 500 mg PO BID PRN pain #20 tabs 05/05/24 Allergies Allergy/AdvReac Type Severity Reaction Status Date / Time No Known Allergies Allergy Verified 05/27/25 12:18 Review of Systems Musc: Reports: extremity pain (L foot), extremity swelling (L foot), joint pain (L ankle) and joint swelling (L ankle); Denies: joint redness or joint warmth Neuro: Reports: difficulty walking (secondary to pain in L foot/ankle); Denies: numbness in extremities, weakness in extremities or sensory changes PFSH ED PFSH: Medical History Myalgia and myositis Anxiety and depression Depression due to physical illness Seizure disorder Acute left-sided weakness Resolved after the first 1-2 weeks from his first seizure. Surgical History History of appendectomy Family History Father Epilepsy Other CAD (coronary artery disease) Cancer Diabetes Hyperlipidemia Hypertension Lung disease Stroke Social History Smoking and tobacco/nicotine status: never used tobacco/nicotine Alcohol intake: current Alcohol intake frequency: holidays/special occasions only Alcohol type: beer Substance/Drug Use: never Household members: family Marital status: Single Number of children: 1 Current occupational status: employed Physical Exam Const: COMMON NORMALS: no acute distress, average body habitus, no limitations, healthy appearing, alert and well nourished Extremity: COMMON NORMALS: capillary refill normal GENERAL: Yes normal exam except as noted LEFT LOWER EXTREMITY: Yes ankle joint (TTP/edema overlying lateral malleolus) Left ankle: Yes neurovascular exam (normal) and Yes foot & digits (TTP lateral L foot w/o deformity or edema) Left foot and digits: Yes neurovascular exam (normal) Neuro: COMMON NORMALS: moves all extremities, no focal motor deficits and no sensory deficits noted SENSORIUM/ORIENTATION: Yes alert Course Vital Signs: Vital signs: Vital Signs Temperature 98.1 F 05/27/25 12:11 Pulse Rate 60 05/27/25 12:11 Respiratory Rate 17 05/27/25 12:11 Blood Pressure 103/65 05/27/25 12:11 Pulse Oximetry 100 05/27/25 12:11 Oxygen Delivery Me thod Room Air 05/27/25 12:11 MDM - Extremity Injury (Lower) Medical Decision Making XR foot/ankle obtained and unremarkable. Will ANN wrap/give crutches. Discussed RICE therapy. Recommend follow up with PCP in 2 weeks or so if symptoms are not improving. Differential Diagnosis Likely ankle sprain and strain and ankle fracture Medical Records I reviewed the patient's medical records. Lab Data Radiology Impressions Foot X-Ray 05/27/25 12:16 IMPRESSION: No significant bone or joint abnormality. Ankle X-Ray 05/27/25 12:37 IMPRESSION: No significant bone or joint abnormality. All radiology interpretation(s) finalized by discharge Discharge Plan Discharge Patient Disposition: Home Clinical Impression: Left ankle sprain Condition: Stable Prescriptions: No Action (DME) Cam Boot to the right ankle See Rx Instructions .Route .MEDSUPPLY Qty: 1 0RF Rx Instructions: As directed (DME) ASO to right ankle See Rx Instructions .Route .MEDSUPPLY Qty: 1 0RF Rx Instructions: As directed methocarbamol 750 mg tablet 750 mg PO Q6H PRN (Reason: spasms) Qty: 20 0RF naproxen [Naprosyn] 500 mg tablet 500 mg PO BID PRN (Reason: pain) Qty: 20 0RF Discharge Orders: Discharge ED (Routine); Ordered 05/27/25 Ordered By: Kim Ferrari Referrals: Danin Arzola DO [Primary Care Provider, INTERNAL GRINDING MACHINE OPERATOR] Patient Instructions: Ankle Sprain (DC), Patient Portal & [place] Instructions, RICE Therapy Print Language: Telugu Coding Level of Care Code ED [place] [facility] for Eddie Rosales
== END 2025-05-27 13:21 | disposition home or self-care (01) ==
PROVIDERS: Emergency Provider Physician Assistant; PCP Family Medicine
DX: S93.402A Sprain of unspecified ligament of left ankle, initial encounter (principal); W18.42XA Slipping, tripping and stumbling without falling due to stepping into hole or opening, initial encounter
CPT/HCPCS: 73610; 73630; 99283